=== PATIENT | female | born 1970 | race Caucasian/White ===

== ENCOUNTER 2024-03-30 01:57 | Inpatient (IN) | payer OTHER, SELFPAY ==
[2024-03-29 23:09] VITALS: BP 169/99
[2024-03-29 23:12] VITALS: BP 169/99
[2024-03-29 23:15] VITALS: BP 162/99
--- NOTE | 2024-03-29 23:19 | ED.GENMED ---
History of Present Illness
General
Chief Complaint: Chest Pain
Source: patient
Time Seen by Provider: 03/29/24 23:05
History of Present Illness
History of Present Illness:
53-year-old female presents to the emergency room complaining of chest pain. Patient has been having intermittent chest pain since about 4 PM. Patient does have a history of coronary artery disease with bypass and stents even after bypass. Her
last cardiac catheterization was in [place]. Patient took nitro earlier this evening about 7 PM. Her discomfort seem to go away but then it returned. Patient describes it as a indigestion-like discomfort in her chest which radiates to her neck.
She also has some discomfort in her arms. This is similar to what she is experienced with past heart attacks. She is not nauseous. She denies shortness of breath. Patient is diagnosed with hypertension, hyperlipidemia and diabetes. Rather than
take traditional medications the patient has been relying on herbs and other nontraditional remedies to treat her medical conditions. She does not take aspirin every day.
Past History
Past History
ED Past Medical History: CAD, HTN and Hypercholesterolemia
ED Past Surgical History: Cardiac
Social History
Tobacco: Non-smoker
Alcohol: None
Drug: None
Personal: Other
Living: with family
Employment: Other
Family History
Family History: Adopted
Phy Exam
Physical Exam
Physical Exam:
General: Awake, Alert, Oriented X3. No acute distress.
Vitals: unremarkable
Head: Atraumatic
Eyes: Pupils equal, EOMI
Throat: Airway intact, no exudates
Neck: Trachea midline
Lungs: Clear and equal b/l
Heart: Regular rate, no murmurs
Abd: Soft, Nontender, No pulsatile mass
Neuro: Nonfocal
Skin: Warm, dry, no rash
Extremities: pulses equal b/l, no edema
Scores
Heart Score for Chest Pain Patients
STEMI patient?: Yes
Course
Orders/Labs/Results
Orders:
Orders
03/29/24 22:57
ECG [Electrocardiogram (*1)] Urgent
Reason for Study: Chest Pain
03/29/24 22:58
EKG- Treatment ONCE
03/29/24 23:11
Complete Blood Count/With Diff Urgent
Comprehensive Metabolic Panel Urgent
PT/INR [Prothrombin Time] Urgent
PTT Urgent
Troponin I Urgent
03/29/24 23:33
Heparin 1000 Units/500 ml [Heparin] 1,000 units in 500 ml .ROUTE .STK-MED
Lidocaine HCl/Pf [Xylocaine-Mpf 1% Vial] 100 mg .ROUTE .STK-MED ONE
Verapamil Injectable [Isoptin/Verapamil Injection] 5 mg .ROUTE .STK-MED ONE
03/29/24 23:34
Heparin Sodium,Porcine/Ns/Pf [Heparin 2000 Units/1000 ml] 2,000 unit in 1,000 ml .ROUTE .STK-MED
Nitroglycerin [Tridil] 1,500 mcg .ROUTE .STK-MED ONE
03/29/24 23:40
Fentanyl Citrate/Pf [Sublimaze] 100 mcg .ROUTE .STK-MED ONE
Heparin 10,000 units .ROUTE .STK-MED ONE
Midazolam HCl [Versed] 2 mg .ROUTE .STK-MED ONE
03/29/24 23:53
Nitroglycerin [Tridil] 1,500 mcg .ROUTE .STK-MED ONE
03/29/24 23:56
Aspirin Chewable [Low Strength Aspirin] 324 mg .ROUTE .STK-MED ONE
Heparin 5,000 units .ROUTE .STK-MED ONE
Ticagrelor [Brilinta] 180 mg .ROUTE .STK-MED ONE
Abnormal Lab Results
03/29/24
23:11
Carbon Dioxide 21 L mmol/L
(22-30)
BUN 24 H mg/dl
(7-17)
Glucose 387 H mg/dl
(70-99)
Calcium 10.4 H mg/dl
(8.4-10.2)
03/29/24 23:11
03/29/24 23:11
Vital Signs
Initial and Last Documented VS:
Initial Vital Signs
Pulse Resp Pulse Ox
86 18 98
03/29/24 23:08 03/29/24 23:08 03/29/24 23:08
Last Documented Vital Signs
Temp Pulse Resp BP Pulse Ox
98.4 F 91 20 157/89 97
03/29/24 23:12 03/29/24 23:30 03/29/24 23:30 03/29/24 23:30 03/29/24 23:30
MDM/Problems Addressed
Differential Diagnosis Includes:
Acute CA, acute coronary syndrome, GERD
MDM/Problems Addressed:
Patient presents with chest pain. His EKG that was obtained in triage shows ST elevation in 2 3 and aVF with reciprocal changes. Patient does have a significant cardiac history. Patient also has risk factors of diabetes, hypertension,
hypercholesterolemia and family history. Unfortunately the patient is not taking any of her prescribed medication. She has been reliant on herbal remedies and other nontraditional therapies. STEMI alert called after review of the patient's
current EKG and previous EKGs. Dr. Kim came and evaluated the patient and will take the patient to the Police Shift Commander.
Chronic conditions affecting care: DM, HTN, CAD and Other (High cholesterol)
*Pulse Oximetry
Patient hypoxic: no
*EKG
Interpreted by ED Provider?: Yes
Interpretation: abnormal
Heart Rate: 85
Rate: normal
Rhythm: sinus
Ischemia: other (ST elevation in leads II, 3, aVF. There is ST depression in lead I and lead aVL)
*Hand Ironer Interpretation
Rate: normal
Interpretation: normal
Rhythm: other
*Critical Care Note
Total Time (30-74mins, 75-104mins- exclusive of procedures): 33 min
comment:
Critical care statement: A total of 33 minutes of critical care time was provided for this patient. This includes management of unstable vital signs, evaluation of the patient at bedside, reviewing the patient's pertinent medical records, discussion
with consultants, review of old EKGs and review of pertinent medical records. This time with separate from time utilized to perform the aforementioned documented procedures
Patient Management
Social determinants of health affecting care: Other (Noncompliant with prescribed medications)
Discussion with other providers: Ham Stripper (Interventional cardiology, Dr. Kim)
ED Attending Note
-
Portions of this chart may have been created with voice recognition software.� Occasional wrong word or��sound alike� substitutions may have occurred due to the inherent limitations of voice recognition software.
Discharge Plan
Departure
Patient Disposition: Admit
Admit to: process laboratory specialist
Presentation/result/management discussed w/ accepting MD/DO: Dr Kim
Condition: Serious
Discharge Problem:
ST elevation (STEMI) myocardial infarction
Prescriptions:
No Action
metoprolol succinate 50 MG tablet extended release 24 hr
50 mg PO DAILY
ezetimibe 10 MG tablet
10 mg PO DAILY
atorvastatin 80 MG tablet
80 mg PO DAILY
aspirin 81 MG tablet,delayed release (DR/EC)
81 mg PO DAILY
magnesium oxide 500 MG tablet
500 mg PO DAILY
B-complex with vitamin C 1 CAPLET tablet
1 cap PO DAILY
insulin glargine [Lantus Solostar U-100 Insulin] 300 UNITS/3 ML insulin pen
22 units SC DAILY
clopidogrel 75 MG tablet
75 mg PO DAILY Qty: 30 11RF
pantoprazole 40 MG tablet,delayed release (DR/EC)
40 mg PO DAILY Qty: 30 11RF
insulin aspart U-100 [Novolog FlexPen U-100 Insulin] 300 UNITS/3 ML insulin pen
5 units SC AC Qty: 1 1RF
amlodipine 5 MG tablet
5 mg PO DAILY Qty: 30 2RF
Referrals:
Nils Scott, [Family Provider] -
Interventions
Interventions:
*Risk Screen - Suicide Last Done: 03/29/24 23:18
*General Assessment Last Done: 03/29/24 23:18
*Neglect/Abuse Screening Last Done: 03/29/24 23:18
*ED COVID-19 Vaccine History Last Done: 03/29/24 23:18
*Nursing Disposition Last Done: 03/29/24 23:40
ED- Cardiac Assessment Last Done: 03/29/24 23:22
Discharge Date and Time
Discharge Date/Time: 03/29/24 23:40
Print Language: BENINESE
[2024-03-29 23:21] LABS: % Basophils 0.4 % (0-2); % Eosinophils 0.9 % (0-6); % Immature Granulocytes 0.1 % (0-0.5); % Lymphocytes 41.3 % (20.5-51.1); % Monocytes 4.8 % (1.7-9.3); % Neutrophils 52.5 % (42.2-75.2); Absolute Eosinophils 0.1 10^3/uL (0-0.7); Absolute Lymphocytes 2.9 10^3/uL (1.2-3.4); Absolute Monocytes 0.3 10^3/uL (0.1-0.6); Absolute Neutrophils 3.6 10^3/uL (1.4-6.5); Hematocrit 38.5 % (37.0-47.0); Hemoglobin 13.7 g/dL (12.0-16.0); Mean Corp Hgb Conc. 35.6 g/dL (33.0-37.0); Mean Corpuscular Hgb 28.9 pg (27.0-31.0); Mean Corpuscular Volume 81.2 fL (81.0-99.0); Mean Platelet Volume 10.3 fL (7.4-10.4); Nucleated Red Blood Cells % 0 %; Platelet Count 329 10^3/uL (130-400); Red Blood Cell Count 4.74 10^6/uL (4.20-5.40); Red Cell Dist. Width 12.3 % (11.5-14.5); White Blood Cell Count 6.9 10^3/uL (4.8-10.8)
[2024-03-29 23:24] VITALS: BP 152/94
[2024-03-29 23:26] VITALS: BP 152/94
[2024-03-29 23:30] VITALS: BP 157/89
[2024-03-29 23:33] LABS: ALT (SGPT) 30 U/L (0-35); AST (SGOT) 29 U/L (14-36); Alkaline Phosphatase 87 U/L (38-126); Blood Urea Nitrogen 24 mg/dl (7-17); Calcium 10.4 mg/dl (8.4-10.2); Carbon Dioxide 21 mmol/L (22-30); Chloride 100 mmol/L (98-107); Estimated Creatinine Clearance 112 ml/min; Glucose 387 mg/dl (70-99); INR 0.93; PT 12.5 Sec (11.4-14.6); Potassium 4.9 mmol/L (3.5-5.1); Sodium 138 mmol/L (135-145); Total Bilirubin 0.9 mg/dl (0.2-1.3); Total Protein 8.1 g/dl (6.3-8.2); eGFR > 60.00
--- NOTE | 2024-03-29 23:41 | HPS.HSE ---
Family Physician
-
Family Physician: Nils Scott
Chief Complaint
-
Chest pain.
History of Present Illness
53 y/o female with HTN, HLD, IDDM and CAD s/p prior CABG x5 (RAMÍREZ to LAD, LRA to RI to OM, SVG to Diagonal, SVG to RPDA) presenting with chest pain. EKG showed ST elevation in the inferior leads. optical laboratory technician was activated. At the time of
presentation, the patient's chest pain had improved to 2-3/10. She had a prior cardiac catheterization on 02/12/[address] Peter, at which time the SVG to RPDA was noted to be occluded and the RCA was a COMM[employer]IST. Her SD was medically managed.
Since then, she reports that she has suffered two more events last summer (summer 2022) while she was in [place]. An additional stent was placed, but she is not sure in what artery.
She reports that she is not taking any medications beyond her insulin, which she takes 'sometimes'. She is using cayanne pepper as a 'blood thinner'.
Medical History
Past Medical History
Past Medical History: Reports CAD, HTN, Hypercholesterolemia, IDDM and SD
Past Surgical History: Reports Cardiac (CABG x 4 (RAMÍREZ to LAD, LRA to RI, SVG to Diagonal, occluded SVG to RPDA - 02/12/2021).)
Social History
Tobacco: Non-smoker
Personal: Single
Living: Alone
Family History
Family History: Not pertinent
Allergies / Home Medications
Allergies reflects when Allergies were last updated in [facility].
Home Medications with original date entered in [facility]
Allergy/Medication List:
Home Medications:
Insulin (unclear dose).
Allergies:
PCN
Review of Systems
-
Constitutional: Reports No Symptoms
EENT: Reports No Symptoms
Respiratory: Reports No Symptoms
Cardiac: Reports See HPI and Chest Pain
Abdomen/GI: Reports No Symptoms
: Reports No Symptoms
Musculoskeletal: Reports No Symptoms
Physical Exam
Vital Signs
Vital Signs
Temp Pulse Resp BP Pulse Ox
36.9 C 91 20 157/89 97
03/29/24 23:12 03/29/24 23:30 03/29/24 23:30 03/29/24 23:30 03/29/24 23:30
Physical Exam
General: Well Developed, Well Nourished, No Apparent Distress, Comfortable, Conversant and Good Appetite
HEENT: NormoCephalic, Anicteric, Moist mucous membranes, Atraumatic, Good Dentition, PERRLA, [place] Conjunctivae, Nose Appears Normal, Ears Appear Normal and Neck Nontender
Respiratory: Clear and Non Labored Respirations
Cardiac: S1/S2 and Regular Rhythm
Breast: Deferred by me
GI: Soft, Non Tender, Non Distended and Normal Bowel Sounds
Rectal: Deferred by Provider
Genito-urinary: Deferred by me
Musculoskeletal: No Clubbing, No Cyanosis and No Edema
Skin: Warm and Dry
Neuro: AO x 3
Hematologic/Lymphatic: No Lymphadenopathy
Psych: Calm and Intact Judgment/Insight
Laboratory Results
-
03/29/24 23:11
03/29/24 23:11
Laboratory Results
Total Bilirubin 0.9 mg/dl (0.2-1.3) 03/29/24 23:11
AST 29 U/L (14-36) 03/29/24 23:11
ALT 30 U/L (0-35) 03/29/24 23:11
Alkaline Phosphatase 87 U/L (38-126) 03/29/24 23:11
Data Reviewed
-
Medical Tests (Nuc Med, Echo, EKG etc): Image Personally Visualized and interpreted and Report Reviewed by me
Lab Data: Labs Reviewed by me
Old Records: Reviewed
Impression/Plan
-
IMPRESSION: 53 y/o female with IDDM, HTN, HLD, CAD s/p prior CABG and PCI and medical non-compliance admitted with chest pain and inferior ST segment elevations consistent with STEMI.
PLAN:
#CAD/STEMI
-Urgent cardiac catheterization with ad hoc PCI.
-Risks/benefits explained to the patient.
-Consent is signed and on the chart.
-Further instructions to follow.
[2024-03-29 23:44] LABS: Troponin I 0.031 ng/ml
[2024-03-30] VITALS (20 sets, daily range): BP systolic 88–147; BP diastolic 58–126; BMI 27.8
[2024-03-30 00:33] LABS: ACT-LR - POC 240 Seconds (116-155)
[2024-03-30 01:06] LABS: ACT-LR - POC 237 Seconds (116-155)
[2024-03-30 01:12] LABS: ACT-LR - POC 258 Seconds (116-155)
[2024-03-30 01:27] LABS: ACT-LR - POC 311 Seconds (116-155)
[2024-03-30 01:27] LABS: ACT-LR - POC 306 Seconds (116-155)
[2024-03-30 01:40] LABS: Glucose - Point of Care 268 mg/dl (70-99)
--- NOTE | 2024-03-30 01:41 | ITS.CL.ANGIO ---
Hoop Driving Machine Operator Helper - Angioplasty
Angioplasty
Procedure Report:
CARDIAC CATHETERIZATION REPORT
Date of Procedure: 03/29/2024
Referring: Hakeem Camacho D.O.
INDICATION: Inferior ST elevation myocardial infarction.
PROCEDURE:
1. Left heart catheterization.
2. Coronary angiography.
3. Bypass graft angiography.
4. Successful PCI of the left circumflex.
5. Successful PCI of the SVG to diagonal.
6. Successful IVUS guided angioplasty of the left circumflex stents due to hyper acute stent thrombosis.
ACCESS:
6 Vincentian right common femoral artery using a modified Seldinger technique with a micropuncture kit under ultrasound guidance.
CATHETERS:
1. 6 Vincentian JL 4.
2. 6 Vincentian JR4.
3. 6 Vincentian JOSE.
4. 6 Vincentian EBU 4.0 guiding catheter.
5. 6 Vincentian JR4 guiding catheter.
HEMODYNAMIC DATA
Weight (kg): 78.0
AO (s/d/x, mmHg): 141/77/101
LV (s/x mmHg): 142/10
LEFT VENTRICULOGRAPHY: Not performed.
CORONARY ANGIOGRAPHY
Dominance: Right.
Left Main: Large size, trifurcating vessel. There is no significant coronary artery disease.
LAD: Small size vessel giving rise to 1 notable diagonal. The vessel is diffusely diseased with a discrete, 70% lesion in its midportion. There is an 80% lesion in the proximal diagonal. The distal LAD is supplied by a patent RAMÍREZ graft. The
diagonal is supplied by a patent vein graft.
Ramus: Normal size vessel that supplies the majority of the anterolateral wall and wraps around the inferior apex. The vessel is chronically totally occluded at its origin. The vessel supplied by a patent left radial graft.
Circumflex: Small to medium size, nondominant vessel giving rise to 2 small obtuse marginals before terminating as a left posterolateral branch. There is a 40% lesion in the ostium of the vessel. There is a culprit, 90% lesion in the mid
circumflex, and between OM's 1 and 2.
RCA: Small size, dominant vessel that is diffusely diseased. A patent stent is visible in the mid vessel spanning the origin of the RV marginal. There is catheter dampening with engagement of the JR4 but no appreciable stenosis.
BYPASS GRAFT ANGIOGRAPHY
RAMÍREZ to LAD: Small size graft with Endo side anastomosis to the distal LAD. There is no evidence of stenosis or graft degeneration.
LRA to ramus: Normal size graft with end-to-side anastomosis to the ramus intermedius. There is a 50% stenosis in the proximal vessel immediately after the bypass robin with significant catheter dampening on engagement that does not respond to
intracoronary nitroglycerin. This appears stable from prior angiography in 2020.
SVG to RPDA: Arising from the same robin as the left radial artery to ramus graft. The graft is chronically totally occluded at its origin, demonstrated in 2020.
SVG to diagonal: Normal size graft with end-to-side anastomosis to the diagonal artery. There is a stable, 50% lesion in the proximal margin of the vein graft. There is a new, hazy, 80% lesion in the mid graft with to and fro appearance
concerning for thrombus.
INTERVENTION(S)
1. Successful PCI of the culprit, 90% mid circumflex lesion (Medtronic Turin Grady 2.0 x 12 SHAWNA) with reduction in stenosis to 0%, maintaining MATT-3 flow.
2. Successful aspiration thrombectomy of the SVG to diagonal graft (AICHA catheter) with white thrombus in the basket and an improvement in the hazy appearance of the graft.
3. Successful PCI of the hazy, 80% mid SVG to diagonal lesion (Medtronic Turin Grady 3.5 x 34 SHAWNA, postdilated with a 3.5 NC balloon) with reduction in stenosis to 0% and resolution of the hazy, to and fro appearance.
4. Successful aspiration thrombectomy of hyperacute mid circumflex stent thrombosis (AICHA catheter).
5. Successful IVUS guided angioplasty of the mid circumflex stent (Medtronic Euphora 2.0 x 12 NC balloon to 14 deana) with improved stent expansion and latter day of MATT-3 flow.
Narrative:
The decision was made to proceed with percutaneous coronary intervention, though it was not entirely clear which lesion was a true culprit. The diagnostic catheter was removed over a wire and a 6Fr EBU 4.0 guiding catheter was advanced to the aortic
root and seated in the left main coronary artery. Additional heparin was given and a Power Turn Flex wire was advanced into the distal circumflex/LPL. The 90% mid circumflex lesion was predilated with a 2.0 x 12 semi-compliant balloon to 8 deana. The
semi-compliant balloon was removed and a Medtronic Turin Grady 2.0 x 12 drug-eluting stent was advanced. The stent was deployed at 12 atmospheres. The stent balloon was removed. Post angiography appeared to show an excellent angiographic result.
Given the relatively small nature of the vessel, the decision was made to not post dilate at this time.
We then turned our attention to the SVG to diagonal lesion. The decision was made to proceed with percutaneous coronary intervention. The EBU 4.0 guiding catheter was removed over a wire and a 6Fr JR4 guiding catheter was advanced to the aortic
root and seated in the ostium of the SVG to diagonal. A Power Turn Flex wire was advanced into the distal diagonal. The hazy, 80% mid graft lesion was predilated with a 2.0 x 12 semi-compliant balloon to 12 deana. The semi-compliant balloon was
removed.
Given the to and fro appearance, the decision was made to proceed with aspiration thrombectomy. An AICHA catheter was advanced over the power turn flex wire and into the vein graft. Aspiration thrombectomy was performed under negative pressure and
the catheter was withdrawn and a negative pressure state. The contents of the syringe were flushed through a permeable basket. Several pieces of white thrombus were visible in the basket.
During the course of the SVG intervention, the patient's ACT had been checked numerous times. The initial ACT was surprisingly low, around 230 seconds. An additional bolus of heparin was given and a subsequent ACT was out of range high. A third
ACT was drawn approximately 20 minutes later showing that the ACT had fallen to 240 seconds. The ACT was checked on a separate machine, resulting in an ACT of 257 seconds. An additional 5000 units of heparin was given (for total of 17,000 units).
A 3.0 x 20 semicompliant balloon was advanced over the power turn flex wire and into the vein graft. The lesion was predilated again to 12 deana. The semicompliant balloon was removed and a Medtronic Giovany Grady 3.5 x 38 drug-eluting stent was
advanced. Meticulous care was taken while positioning the stent, ensuring that the entire lesion, including the hazy, to and fro area was covered. The stent was deployed at 12 atmospheres. The stent balloon was removed. A 3.5 x 15 noncompliant
balloon was advanced but would not pass the ostium of the stent. The noncompliant balloon was withdrawn and a 3.5 x 12 noncompliant balloon was advanced. Unfortunately, there was significant difficulty advancing this balloon as well. A GuideLiner
was brought in for support. With the GuideLiner, we were able to advance the noncompliant balloon into the stented segment. The stent was postdilated to 16 atmospheres.
Over the course of the SVG intervention, the patient began to complain of chest pain, similar to that which had brought her in. EKG showed rising inferior ST segment elevation and spite of excellent runoff from the vein graft into the diagonal and
no obvious complication from the procedure. Angiography was performed in orthogonal views, confirming good stent expansion and an excellent angiographic result. The coronary wire was withdrawn and the guide was disengaged from the artery. The
catheter was removed over a standard J-wire.
The patient was started on a nitroglycerin drip. The decision was made to relook at the [place] circulation to ensure that there has been no subsequent complication. The JL 4 diagnostic catheter was readvanced and seated in the left main coronary
artery. Diagnostic angiography showed hyperacute stent thrombosis of the recently placed mid circumflex stent. The patient was given eptifibatide is a double bolus and drip and the diagnostic catheter was exchanged for the EBU 4.0 guiding
catheter. The power turn flex wire was readvanced into the distal circumflex. Angiography after wire placement showed latter day of MATT-3 flow, but we opted to perform aspiration thrombectomy given the hyperacute nature of the thrombosis. After
aspiration thrombectomy was completed, a 2.0 x 12 noncompliant balloon was advanced into the stent and the stent was postdilated to 14 atmospheres.
The decision was made to perform intracoronary imaging. An IVUS catheter was advanced through the guiding catheter and into the ostium of the artery. Ring down was performed once the imaging crystal was no longer inside of the guiding catheter. The
IVUS catheter was advanced into the distal circumflex, beyond the stented segment. Intravascular ultrasound was performed in a retrograde fashion using a slow pullback. Intracoronary imaging demonstrated a diffusely diseased distal vessel. The
stented segment showed excellent stent apposition throughout with underexpansion of the distal edge of the stent (1.6 x 1.8 mm).
The IVUS catheter was withdrawn and the 2.0 x 12 noncompliant balloon was readvanced. The balloon was positioned so that the shoulder of the balloon was outside of the stented segment to ensure complete expansion of the distal stent. The balloon
was inflated to 14 deana. The noncompliant balloon was withdrawn.
Angiography was performed in orthogonal views, confirming good stent expansion and an excellent angiographic result. The coronary wire was withdrawn and the guide was disengaged from the artery. The catheter was removed over a standard J-wire.
Final ACT was 342 seconds. Over the course of the neck several minutes, the patient's chest pain completely abated. She was transferred to the IVU in fair condition.
Closure Device: 6 Vincentian Angio-Seal.
Radiation (mGy): 1442.62
DAP (cm2.Gy): 87.1386
Fluoroscopy time (minutes): 21.4
Sedation time (minutes): 92
CONCLUSIONS
1. Right dominant circulation with a patent stent in the mid RCA but an otherwise diffusely diseased vessel, a diffusely diseased LAD with a discrete, 70% lesion in the midportion, and 80% lesion in the proximal diagonal, a chronic total occlusion
of the ramus intermedius, a 40% lesion in the ostium of the left circumflex and a culprit, 90% lesion in the mid circumflex between OM1 and OM 2.
2. Status post coronary artery bypass grafting with a patent RAMÍREZ to LAD, and occluded SVG to RPDA, a patent LRA to ramus with a 50% lesion in the proximal margin, stable from prior angiography, and a patent SVG to diagonal with a stable 50% ostial
lesion and a new, hazy, 80% mid graft lesion with a to and fro appearance concerning for thrombus.
3. Successful PCI of the 90% mid circumflex lesion (Medtronic Turin Grady 2.0 x 12 SHAWNA) with reduction in stenosis to 0%, subsequently complicated by hyperacute stent thrombosis requiring aspiration thrombectomy and IVUS guided postdilation
angioplasty (Medtronic Euphora 2.0 x 12 NC balloon to 14 deana) with improved stent expansion/apposition and latter day of MATT-3 flow.
4. Successful aspiration thrombectomy and PCI of the hazy, 80% mid SVG to diagonal lesion (Medtronic Giovany Grady 3.5 x 38 SHAWNA, postdilated with a 3.5 NC balloon) with reduction in stenosis to 0%, maintaining MATT-3 flow.
5. Normal filling pressures (LVEDP = 10 mmHg at 78.0 kg).
6. I am suspicious for some inherited thrombophilia as the patient required a significant amount of heparin to achieve and then maintain an adequate ACT (17,000 units).
RECOMMENDATIONS:
1. Expectant management after cardiac catheterization via right common femoral approach.
2. Limited weight bearing for one week.
3. Dual antiplatelet therapy with aspirin and ticagrelor for at least 1 year, followed by aspirin indefinitely.
4. Reinitiation of aggressive secondary prevention with high-dose, high potency statin. Goal LDL <55.
5. Guideline directed medical therapy as hemodynamics will tolerate.
6. Maintain eptifibatide drip at 2 mcg/kg for 18 hours.
7. Echocardiogram ordered and pending.
8. Referral to cardiac rehab.
Copy to: Nils Scott D.O.
Magnus Callaway, DO, FACC, FACP
[2024-03-30] MEDS: INTEGRILIN 100 IV ×3 (01:50→16:14)
[2024-03-30] MEDS: NITROGLYCERIN PREMIX 250 IV (01:50)
[2024-03-30] MEDS: NSS 1000 IV (02:24)
[2024-03-30 05:13] LABS: Hemoglobin 12.3 g/dL (12.0-16.0); Mean Corp Hgb Conc. 36.2 g/dL (33.0-37.0); Mean Corpuscular Hgb 29.6 pg (27.0-31.0); Mean Corpuscular Volume 81.7 fL (81.0-99.0); Mean Platelet Volume 10.5 fL (7.4-10.4); Platelet Count 302 10^3/uL (130-400); Red Blood Cell Count 4.16 10^6/uL (4.20-5.40); Red Cell Dist. Width 12.3 % (11.5-14.5); White Blood Cell Count 9.3 10^3/uL (4.8-10.8)
[2024-03-30 05:54] LABS: Blood Urea Nitrogen 19 mg/dl (7-17); Calcium 10.6 mg/dl (8.4-10.2); Carbon Dioxide 21 mmol/L (22-30); Chloride 104 mmol/L (98-107); Estimated Creatinine Clearance 112 ml/min; Glucose 264 mg/dl (70-99); Potassium 4.5 mmol/L (3.5-5.1); Sodium 138 mmol/L (135-145); eGFR > 60.00
[2024-03-30 07:20] LABS: Glucose - Point of Care 273 mg/dl (70-99)
--- NOTE | 2024-03-30 07:49 | PTCARENOTE ---
Rec'd pt. out of [address] at 0150 AAOx3, VSS, NSR on the monitor. Pt. denied any CP/discomfort, able to discontinue running nitro gtt at 0400 as per protocol. Right groin dressing with old drainage that grew slightly, dressing changed x 2 & manual
pressure held x 20 minutes, hemostasis pad placed - oozing completely stopped. No hematoma assessed, pedal pulse palpable. CV-PA Tsilina aware. Integrilin gtt infusing as per order. Pt. oriented to room and admission completed. Attempted to
reconcile med list but pt. states she no longer takes any prescription meds at home except for her Novalog when she 'feels' that her blood sugar is high.
[2024-03-30 08:21] LABS: Glycohemoglobin (HgbA1c) 10.7 % (4.0-5.6)
[2024-03-30] MEDS: ZESTRIL 2.5 MG PO (09:06)
[2024-03-30] MEDS: BRILINTA 90 MG PO ×2 (09:06→20:04)
[2024-03-30] MEDS: LOW STRENGTH ASPIRIN 81 MG PO (09:07)
[2024-03-30] MEDS: TOPROL XL 12.5 MG PO (09:07)
[2024-03-30] MEDS: NOVOLOG FLEXPEN-LOW RESISTANCE 3 UNITS SC (09:25)
[2024-03-30] MEDS: NOVOLOG FLEXPEN 5 UNITS SC (09:25)
--- NOTE | 2024-03-30 09:41 | W.PN.CARDCBS ---
Addendum entered and electronically signed by Kamar Redmond MD 03/30/24 14:50:
I saw and examined the patient.
The Warehouse Supervisor 3Rd Shift's note was reviewed and I agree with the note.
Comment: Briefly, 53-year-old woman past medical history of multivessel CAD with prior CABG in 2019 who presented with chest and jaw pain found to have inferior STEMI who is now status post PCI of the mid circumflex and SVG to diagonal. Procedure
was complicated by hyperacute stent thrombosis requiring aspiration thrombectomy. Patient is being maintained on Integrilin drip post cath.
Tells me that her chest and jaw discomfort have resolved
No evidence of mechanical complication of DC or decompensated heart failure on exam
Monitor on telemetry
Continue aspirin/Brilinta, Toprol with a high intensity statin
Check transthoracic echocardiogram to assess left ventricular systolic function
Reports mild dyspnea, would consider Lasix in the a.m. if symptoms persist
Discussed cardiac rehab as well as importance of medication compliance
Original Note:
Today's Communication / Plan
-
urged medication compliance
trend trops to peak
continue integrilin, asa, brilinta
echo today
toprol, lisinopril, crestor ordered
diabetic AUTOMOBILE ASSEMBLER consult
Impression / Plan
-
Primary Deck Mate: Dr. Serge Hayden of [facility]
Assessment:
-Presentation with CP
-STEMI s/p emergent cath 03/30/24 with culprit 90% lesion in mid circumflex status post stenting complicated by hyperacute stent thrombosis requiring aspiration thrombectomy and IVUS guided angioplasty and aspiration thrombectomy and PCI of mid SVG
to diagonal lesion
-residual CAD as noted in cath report below
-CAD
Inferior DC 06/2019, vessels felt to be too small for revascularization, initially treated medically
status post CABG x 4 RAMÍREZ to LAD, left radial to ramus, SVG to diagonal, SVG to PDA at [facility], [place], Dr. Levin 08/2019
NSTEMI 01/2021 with occluded SVG to PDA, diseased SVG to diagonal, patent radial graft to ramus and distal circumflex branch, managed medically due to small vessel with high likelihood of reocclusion
NSTEMI 12/2022 resulting in SHAWNA to RCA which subsequently occluded 3 days later off DAPT due to medical noncompliance
RCA PCI 12/2022
Status post cardiac catheterization 09/07/2023 with triple-vessel coronary artery disease with widely patent bypass grafts and known occluded RCA collateralized by LAD system, felt to be culprit for patient's symptoms
-HTN
-HLD
-DM2, hgbA1c 10.7%
-GERD
-Medication noncompliance
ECHO 02/13/2021: EF 60%, trace to mild MR, mild TR, PAP 25 to 30 mmHg
ECHO 03/30/24: pending
CATH CONCLUSIONS 03/30/24:
1. Right dominant circulation with a patent stent in the mid RCA but an otherwise diffusely diseased vessel, a diffusely diseased LAD with a discrete, 70% lesion in the midportion, and 80% lesion in the proximal diagonal, a chronic total occlusion
of the ramus intermedius, a 40% lesion in the ostium of the left circumflex and a culprit, 90% lesion in the mid circumflex between OM1 and OM 2.
2. Status post coronary artery bypass grafting with a patent RAMÍREZ to LAD, and occluded SVG to RPDA, a patent LRA to ramus with a 50% lesion in the proximal margin, stable from prior angiography, and a patent SVG to diagonal with a stable 50% ostial
lesion and a new, hazy, 80% mid graft lesion with a to and fro appearance concerning for thrombus.
3. Successful PCI of the 90% mid circumflex lesion (Medtronic [place] 2.0 x 12 SHAWNA) with reduction in stenosis to 0%, subsequently complicated by hyperacute stent thrombosis requiring aspiration thrombectomy and IVUS guided postdilation
angioplasty (Medtronic Euphora 2.0 x 12 NC balloon to 14 deana) with improved stent expansion/apposition and latter day of MATT-3 flow.
4. Successful aspiration thrombectomy and PCI of the hazy, 80% mid SVG to diagonal lesion (Medtronic Gi[place]any [place] 3.5 x 38 SHAWNA, postdilated with a 3.5 NC balloon) with reduction in stenosis to 0%, maintaining MATT-3 flow.
5. Normal filling pressures (LVEDP = 10 mmHg at 78.0 kg).
6. I am suspicious for some inherited thrombophilia as the patient required a significant amount of heparin to achieve and then maintain an adequate ACT (17,000 units).
Plan:
-Patient reports over the last week she has noted some chest discomfort which she thought was indigestion. She reports initial episode had lasted a few minutes and went away on its own. She then had recurrence several days later and took Tums
without improvement. She then took a sublingual nitro x 1 which did improve her symptoms. She states she did come to [facility] emergency room and walked around in the parking lot for a little without recurrence of chest pain and
therefore returned home. She states then several days later, yesterday around 3 PM she noted recurrence of symptoms which was constant. She states she came in when she 'could not take it anymore'. She reports for the last year or so she has not
been taking aspirin or Plavix and has been using cayenne pepper as a substitute. She also reports using her insulin 'sometimes'.
-She was noted to be a STEMI on arrival and underwent emergent catheterization resulting in stent to mid circumflex which was complicated by hyperacute stent thrombosis requiring aspiration thrombectomy and IVUS guided angioplasty and also underwent
aspiration thrombectomy and PCI of mid SVG to diagonal lesion. She has residual CAD as noted above
-Currently on aspirin, Brilinta and plan to continue Integrilin for 18 hours. We discussed absolute necessity of medication compliance moving forward
-She did have some oozing from her groin site overnight, currently stable. Hemoglobin stable at 12.3. Groin site remains soft on exam
-trop up to 2.5, trend to peak
-Echo pending
-Check lipid panel. Restart high intensity statin therapy, which she had stopped on her own as an outpatient
-Hemoglobin A1c 10.7%. Consult diabetic education/management. Also discussed importance of compliance with insulin
-She reports some shortness of breath this morning. Check proBNP. Chest x-ray on arrival without acute abnormalities noted. She may have component of acute heart failure, however also could be due to Brilinta. Will follow
-Low-dose Toprol and lisinopril started
-patient is adopted so is unable to provide family history. would consider hematologic work up to rule out underlying clotting disorder
-Outpatient follow-up with Dr. Hayden
-Cardiac rehab
-Discussed with nursing
Progress Note - Deck Mate
Subjective
Date of Service: March 30, 2024
No present chest pain. Does report some feelings of breathlessness
Objective
Labs:
03/30/24 04:34
03/30/24 04:49
Labs
Hgb 12.3 g/dL (12.0-16.0) 03/30/24 04:34
Hct 34.0 % (37.0-47.0) L 03/30/24 04:34
Plt Count 302 10^3/uL (130-400) 03/30/24 04:34
PT 12.5 Sec (11.4-14.6) 03/29/24 23:11
INR 0.93 03/29/24 23:11
APTT 27.0 Sec (23.4-35.0) 03/29/24 23:11
Sodium 138 mmol/L (135-145) 03/30/24 04:49
Potassium 4.5 mmol/L (3.5-5.1) 03/30/24 04:49
BUN 19 mg/dl (7-17) H 03/30/24 04:49
Creatinine 0.5 mg/dL (0.6-1.0) L 03/30/24 04:49
Glucose 264 mg/dl (70-99) H 03/30/24 04:49
Troponins
03/29/24 03/30/24
23:11 04:49
Troponin I 0.031 2.510 H* D
Vital Signs and I&O:
Vital Signs
Temp Pulse Resp BP Pulse Ox
98 F 60 20 101/70 98
03/30/24 07:13 03/30/24 09:06 03/30/24 07:13 03/30/24 09:06 03/30/24 07:13
Vital Signs
Temp Pulse Resp BP Pulse Ox
98 F 60 20 101/70 98
03/30/24 07:13 03/30/24 09:06 03/30/24 07:13 03/30/24 09:06 03/30/24 07:13
Intake & Output
03/28/24 03/29/24 03/30/24 03/31/24
07:59 07:59 07:59 07:59
Intake Total 62 / 62
Balance 62 / 62
Physical Exam
Physical Exam
GEN: No distress, awake, alert, oriented x3
HEENT: supple, anicteric, mmm, eomi
LUNGS: CTA B/L, no wheezes/rales
CV: Reg, S1/S2, no murmur
ABD: soft, BS+, NT/ND
EXT: No cyanosis, clubbing, edema
NEURO: Gross non-focal
SKIN: Warm, pink, dry. No rash. R groin site with dressing c/d/i, soft, mild surrounding ecchymoses
--- NOTE | 2024-03-30 09:48 | CM ---
Pricing on Brilinta 90mg BID through the patient' prescription plan is $146. 85, patient has commercial insurance and qualifies for the $5 co pay card. Brilinta is in stock at [facility]
[2024-03-30 10:48] LABS: NT-proBNP 162 pg/ml
[2024-03-30 10:56] LABS: HDL Cholesterol 78 mg/dl; LDL Cholesterol, Calculated 142 mg/dl; Total Cholesterol 294 mg/dl (50-199); Triglyceride 371 mg/dl (10-149); Very Low Density Lipoprotein 74 mg/dl (0-30)
--- NOTE | 2024-03-30 11:12 | CM ---
Chart reviewed. Patient is independent of ADLS, lives in a 1st floor trailer [place] friends property, 2-3 DUNCAN, 0 DME. Plan is for the patient to return home. CM to follow
--- NOTE | 2024-03-30 11:18 | PN.DE.MGMTRT ---
Insulin Management
- -
03/30/2024 Diabetes Management Consult
Patient admitted 03/29 with chest pain, stemi. PMH CAD with CABG, HTN, HCL, diabetes, [place]. Prior to admission was taking insulin occasionally if she felt she needed it but no lantus. A1C on admission 10.7%, cr .5, eGFR >60.
Patient is awake alert and oriented able to discuss diabetes management. Admits she has not taken care of herself. Has seen an endo in the past, not sure who and only saw them once. Primarily follows with primary. She did have a DexCom G7 but
script ran out. She states she was told to take 30 units of lantus @ hs with novolog 8 units with breakfast, 10 with lunch and dinner.
Will increase AC novolog to 8 units with low corrective insulin and start hs lantus 30 units tonight. Will check 3 am glucose.
She expressed interest in an insulin pump. Instructed patient that diabetes is too uncontrolled, she would have to start taking her insulin and improve control then suggest she speak with her doctor about obtaining pump. My number provided for
further help with pump education.
Will follow
Diabetes History
- -
Type of Diabetes: 2 requiring insulin
Pre-Admission Diabetes Regimen
03/29/24 03/30/24
23:11 04:49
Creatinine 0.6 0.5 L
Lab Results
Hemoglobin A1c 10.7 % (4.0-5.6) H 03/30/24 04:34
Insulin Pump Settings
IP Diabetes Regimen
03/29/24 03/30/24 03/30/24
23:11 01:30 04:49
Glucose 387 H 264 H
POC Glucose 268 H
03/30/24
07:19
Glucose
POC Glucose 273 H
Patient Education
[2024-03-30 13:00] LABS: ACT-LR - POC > 397 Seconds (116-155)
[2024-03-30] MEDS: NOVOLOG FLEXPEN 8 UNITS SC ×2 (13:24→18:26)
[2024-03-30] MEDS: NOVOLOG FLEXPEN-LOW RESISTANCE 2 UNITS SC ×2 (13:24→18:25)
[2024-03-30 13:27] LABS: Glucose - Point of Care 220 mg/dl (70-99)
[2024-03-30 17:42] LABS: Glucose - Point of Care 216 mg/dl (70-99)
[2024-03-30] MEDS: CRESTOR 40 MG PO (18:29)
[2024-03-30 22:08] LABS: Glucose - Point of Care 224 mg/dl (70-99)
[2024-03-30] MEDS: LANTUS 0.3 UNITS SC (22:23)
--- NOTE | 2024-03-31 00:27 | PTCARENOTE ---
Right groin dressing C/D/I and ecchymosis near site. Soft upon palpation. Tele remains SR at rest. POC ongoing. Call stinson within reach.
[2024-03-31 03:35] VITALS: BP 107/69
[2024-03-31 03:41] LABS: Glucose - Point of Care 212 mg/dl (70-99)
[2024-03-31 04:32] LABS: Hemoglobin 13.1 g/dL (12.0-16.0); Mean Corp Hgb Conc. 35.4 g/dL (33.0-37.0); Mean Corpuscular Hgb 29.8 pg (27.0-31.0); Mean Corpuscular Volume 84.3 fL (81.0-99.0); Mean Platelet Volume 10.7 fL (7.4-10.4); Platelet Count 271 10^3/uL (130-400); Red Blood Cell Count 4.39 10^6/uL (4.20-5.40); Red Cell Dist. Width 12.4 % (11.5-14.5); White Blood Cell Count 6.8 10^3/uL (4.8-10.8)
[2024-03-31 04:54] LABS: Blood Urea Nitrogen 18 mg/dl (7-17); Calcium 9.8 mg/dl (8.4-10.2); Carbon Dioxide 22 mmol/L (22-30); Chloride 104 mmol/L (98-107); Estimated Creatinine Clearance 96 ml/min; Glucose 217 mg/dl (70-99); Potassium 4.5 mmol/L (3.5-5.1); Sodium 140 mmol/L (135-145); eGFR > 60.00
[2024-03-31 08:11] VITALS: BP 113/76
[2024-03-31 08:15] LABS: Glucose - Point of Care 219 mg/dl (70-99)
--- NOTE | 2024-03-31 08:34 | PN.DE.MGMTRT ---
Insulin Management
- -
03/31/2024 Diabetes Management F/U:
Patient admitted 03/29 with chest pain, STEMI. PMH: CAD with CABG, HTN, HCL, diabetes, [place]. Prior to admission was taking insulin occasionally if she felt she needed it but no Lantus. Admits she has not taken care of herself. Has seen an endo in the
past, not sure who and only saw them once. Primarily follows with primary. She did have a DexCom G7 but script ran out. She states she was told to take 30 units of Lantus @ HS with NovoLog 8 units with breakfast, 10 with lunch and dinner. A1C on
admission 10.7%, Cr 0.5, eGFR >60.
Pt awake A/O x3, sitting up in chair, offers no complaints, able to discuss diabetes management.
Noted for persistent premeal Hyperglycemia >200, requiring additional corrective insulin with meals. HS glucose 224, 3AM glucose 217
Will increase AC NovoLog to 10 units and HS Lantus to 35 units. Cont low corrective insulin with meals. Will check 3 am glucose.
She expressed interest in an insulin pump. Discussed current A1C and reflection of poorly controlled diabetes at home. Emphasized to pt that she would have to start taking her insulin consistently to improve her blood sugars. Suggested she speak
with her doctor about obtaining pump. My number provided for further help with pump education.
Will follow. Discussed wit pt's Nurse at bedside
Diabetes History
- -
Type of Diabetes: 2 requiring insulin
Pre-Admission Diabetes Regimen
03/31/24
03:46
Creatinine 0.7
Lab Results
Hemoglobin A1c 10.7 % (4.0-5.6) H 03/30/24 04:34
Insulin Pump Settings
IP Diabetes Regimen
03/30/24 03/30/24 03/30/24
13:23 17:40 22:07
Glucose
POC Glucose 220 H 216 H 224 H
03/31/24 03/31/24 03/31/24
03:40 03:46 08:13
Glucose 217 H
POC Glucose 212 H 219 H
Meal type: Dinner
Amount consumed: 100%
Patient Education
[2024-03-31] MEDS: BRILINTA 90 MG PO ×2 (08:49→20:04)
[2024-03-31] MEDS: ZESTRIL 2.5 MG PO (08:49)
[2024-03-31] MEDS: LOW STRENGTH ASPIRIN 81 MG PO (08:50)
[2024-03-31] MEDS: TOPROL XL 12.5 MG PO (08:50)
[2024-03-31] MEDS: LASIX 40 MG IV (08:51)
[2024-03-31] MEDS: NOVOLOG FLEXPEN-LOW RESISTANCE 2 UNITS SC ×2 (09:41→14:30)
[2024-03-31] MEDS: NOVOLOG FLEXPEN 8 UNITS SC (09:42)
--- NOTE | 2024-03-31 09:53 | PTCARENOTE ---
Pt states she takes no medicines regularly at home but possesses aspirin 81mg , novolog flexpens which she uses when she eats a carb heavy meal (without checking her blood sugar), accucheck testing materials and a dexcom.
[2024-03-31 11:18] VITALS: BP 97/64
--- NOTE | 2024-03-31 11:26 | CM ---
Chart reviewed. Patient is independent of ADLS, lives alone in a trailer in a friends yard, 2-3 [place], 0 DME. Plan is for the patient to return home. CM to follow
--- NOTE | 2024-03-31 12:05 | W.PN.CARDCBS ---
Addendum entered and electronically signed by Kamar Redmond MD 03/31/24 13:32:
I saw and examined the patient.
The Manipulator Operator's note was reviewed and I agree with the note.
Comment: Briefly, 53-year-old woman past medical history of multivessel CAD with prior CABG in 2019 who presented with chest and jaw pain found to have inferior STEMI who is now status post PCI of the mid circumflex and SVG to diagonal. Procedure
was complicated by hyperacute stent thrombosis requiring aspiration thrombectomy.
Resting comfortably this morning, no cardiac complaints
No evidence of mechanical complication of CO or decompensated heart failure on exam
Monitor on telemetry, rare ectopy seen
Continue aspirin/Brilinta, Toprol and high intensity statin
Left ventricular systolic function preserved by echo here
Intermittent dyspnea which is mild
Not clearly improved with IV lasix
Will reassess in AM
Recommended cardiac rehab
Rest per Gabriela Ugarte
Original Note:
Today's Communication / Plan
-
Continue aspirin, Brilinta, rosuvastatin, low-dose Toprol and lisinopril
Continue to monitor on telemetry with anticipation of discharge within next 24 hours
Impression / Plan
-
Primary Box Car Loader: Dr. Serge Hayden of [facility]
Assessment:
-Presentation 03/29/2024 with CP
-STEMI s/p emergent cath 03/30/24 with culprit 90% lesion in mid circumflex status post stenting complicated by hyperacute stent thrombosis requiring aspiration thrombectomy and IVUS guided angioplasty and aspiration thrombectomy and PCI of mid SVG
to diagonal lesion
-residual CAD as noted in cath report below
-CAD
Inferior CO 06/2019, vessels felt to be too small for revascularization, initially treated medically
status post CABG x 4 RAMÍREZ to LAD, left radial to ramus, SVG to diagonal, SVG to PDA at [facility] [place], Dr. Levin 08/2019
NSTEMI 01/2021 with occluded SVG to PDA, diseased SVG to diagonal, patent radial graft to ramus and distal circumflex branch, managed medically due to small vessel with high likelihood of reocclusion
NSTEMI 12/2022 resulting in SHAWNA to RCA which subsequently occluded 3 days later off DAPT due to medical noncompliance
RCA PCI 12/2022
Status post cardiac catheterization 09/07/2023 with triple-vessel coronary artery disease with widely patent bypass grafts and known occluded RCA collateralized by LAD system, felt to be culprit for patient's symptoms
-HTN
-HLD
-DM2, hgbA1c 10.7%
-GERD
-Medication noncompliance
ECHO 02/13/2021: EF 60%, trace to mild MR, mild TR, PAP 25 to 30 mmHg
ECHO 03/30/24:EF 55 to 60%. Mild MR. Mild to moderate TR, PAP 20 to 25 mmHg
CATH CONCLUSIONS 03/30/24:
1. Right dominant circulation with a patent stent in the mid RCA but an otherwise diffusely diseased vessel, a diffusely diseased LAD with a discrete, 70% lesion in the midportion, and 80% lesion in the proximal diagonal, a chronic total occlusion
of the ramus intermedius, a 40% lesion in the ostium of the left circumflex and a culprit, 90% lesion in the mid circumflex between OM1 and OM 2.
2. Status post coronary artery bypass grafting with a patent RAMÍREZ to LAD, and occluded SVG to RPDA, a patent LRA to ramus with a 50% lesion in the proximal margin, stable from prior angiography, and a patent SVG to diagonal with a stable 50% ostial
lesion and a new, hazy, 80% mid graft lesion with a to and fro appearance concerning for thrombus.
3. Successful PCI of the 90% mid circumflex lesion (Medtronic Giovany [place] 2.0 x 12 SHAWNA) with reduction in stenosis to 0%, subsequently complicated by hyperacute stent thrombosis requiring aspiration thrombectomy and IVUS guided postdilation
angioplasty (Medtronic [place] 2.0 x 12 NC balloon to 14 deana) with improved stent expansion/apposition and episcopal of MATT-3 flow.
4. Successful aspiration thrombectomy and PCI of the hazy, 80% mid SVG to diagonal lesion (Medtronic Giovany [place] 3.5 x 38 SHAWNA, postdilated with a 3.5 NC balloon) with reduction in stenosis to 0%, maintaining MATT-3 flow.
5. Normal filling pressures (LVEDP = 10 mmHg at 78.0 kg).
6. I am suspicious for some inherited thrombophilia as the patient required a significant amount of heparin to achieve and then maintain an adequate ACT (17,000 units).
Plan:
-Presented 03/29/24 with chest pain and found to have STEMI on arrival and underwent emergent catheterization 03/30/2024 resulting in stent to mid circumflex which was complicated by hyperacute stent thrombosis requiring aspiration thrombectomy and
IVUS guided angioplasty and also underwent aspiration thrombectomy and PCI of mid SVG to diagonal lesion. She has residual CAD as noted above
-Continue aspirin, Brilinta. Brilinta $5 with co-pay card. We discussed absolute necessity of medication compliance moving forward
-Hemoglobin stable at 13.1. Groin site remains soft on exam
-Troponin peaked at 3.740
-Echo as above shows preserved ejection fraction
-Lipids 03/30/2024, was not taking statin. TC 294, HDL 78, LDL 142, triglycerides 371. Restarted high intensity rosuvastatin, which she had stopped on her own as an outpatient
-Hemoglobin A1c 10.7%. Was noncompliant with taking insulin. Appreciate diabetic education/management. Also discussed importance of compliance with insulin
-Did note some shortness of breath with conversation. ProBNP 162. Chest x-ray on arrival without acute abnormalities noted. No evidence of volume overload or heart failure on examination. Could be due to Brilinta. Discussed this can happen
intermittently for 1 to 2 weeks after initiation then usually resolves. Will follow
-Low-dose Toprol and lisinopril started. Unable to uptitrate secondary to hypotension
-patient is adopted so is unable to provide family history. would consider hematologic work up to rule out underlying clotting disorder
-Outpatient follow-up with Dr. Serge Hayden
-Cardiac rehab
-Discussed with nursing
[facility] 03/29/2024:
53 y/o female with HTN, HLD, IDDM and CAD s/p prior CABG x5 (RAMÍREZ to LAD, LRA to RI to OM, SVG to Diagonal, SVG to RPDA) presenting with chest pain. EKG showed ST elevation in the inferior leads. engineering laboratory technician was activated. At the time of
presentation, the patient's chest pain had improved to 2-3/10. She had a prior cardiac catheterization on 02/12/[address] Peter, at which time the SVG to RPDA was noted to be occluded and the RCA was a LIGHTHOUSE KEEPER. Her CO was medically managed.
Since then, she reports that she has suffered two more events last summer (summer 2022) while she was in [place]. An additional stent was placed, but she is not sure in what artery.
She reports that she is not taking any medications beyond her insulin, which she takes 'sometimes'. She is using cayanne pepper as a 'blood thinner'.
Patient reports over the last week she has noted some chest discomfort which she thought was indigestion. She reports initial episode had lasted a few minutes and went away on its own. She then had recurrence several days later and took Tums
without improvement. She then took a sublingual nitro x 1 which did improve her symptoms. She states she did come to [facility] emergency room and walked around in the parking lot for a little without recurrence of chest pain and
therefore returned home. She states then several days later, yesterday around 3 PM she noted recurrence of symptoms which was constant. She states she came in when she 'could not take it anymore'. She reports for the last year or so she has not
been taking aspirin or Plavix and has been using cayenne pepper as a substitute. She also reports using her insulin 'sometimes'.
Progress Note - Box Car Loader
Subjective
Date of Service: March 31, 2024
Patient seen and examined. Patient resting comfortably in bed. Patient notes some mild shortness of breath with conversation which is different than what she felt prior. Denies orthopnea, PND or edema. Denies chest pain, dizziness or
lightheadedness
Objective
Labs:
03/31/24 03:46
03/31/24 03:46
Labs
Hgb 13.1 g/dL (12.0-16.0) 03/31/24 03:46
Hct 37.0 % (37.0-47.0) 03/31/24 03:46
Plt Count 271 10^3/uL (130-400) 03/31/24 03:46
PT 12.5 Sec (11.4-14.6) 03/29/24 23:11
INR 0.93 03/29/24 23:11
APTT 27.0 Sec (23.4-35.0) 03/29/24 23:11
Sodium 140 mmol/L (135-145) 03/31/24 03:46
Potassium 4.5 mmol/L (3.5-5.1) 03/31/24 03:46
BUN 18 mg/dl (7-17) H 03/31/24 03:46
Creatinine 0.7 mg/dL (0.6-1.0) 03/31/24 03:46
Glucose 217 mg/dl (70-99) H 03/31/24 03:46
Troponins
03/29/24 03/30/24 03/30/24
23:11 04:49 11:09
Troponin I 0.031 2.510 H* D 3.740 H* D
03/30/24 03/30/24
16:20 19:43
Troponin I 2.750 H* D 2.250 H*
Vital Signs and I&O:
Vital Signs
Temp Pulse Resp BP Pulse Ox
98.4 F 87 18 113/76 98
03/31/24 11:20 03/31/24 08:11 03/31/24 11:20 03/31/24 08:11 03/31/24 11:20
Vital Signs
Temp Pulse Resp BP Pulse Ox
98.4 F 87 18 113/76 98
03/31/24 11:20 03/31/24 08:11 03/31/24 11:20 03/31/24 08:11 03/31/24 11:20
Intake & Output
03/29/24 03/30/24 03/31/24 04/01/24
06:59 06:59 06:59 06:59
Intake Total 360 / 360
Balance 360 / 360
Physical Exam
Physical Exam
GEN: No distress, awake, Ox3, lying in bed
HEENT: supple, anicteric, mmm
LUNGS: CTA, no wheezes/rales
CV: Reg, S1/S2, no murmur, rub or gallop
ABD: soft, BS+, NT/ND
EXT: No edema, clubbing or cyanosis; right groin soft, mild tenderness with moderate amount of ecchymosis without hematoma
NEURO: Gross non-focal
SKIN: No rash, warm, dry, pink
[2024-03-31 13:38] LABS: Glucose - Point of Care 216 mg/dl (70-99)
[2024-03-31] MEDS: NOVOLOG FLEXPEN SC (14:29)
[2024-03-31 15:50] VITALS: BP 124/85
[2024-03-31 16:29] LABS: Glucose - Point of Care 181 mg/dl (70-99)
[2024-03-31] MEDS: NOVOLOG FLEXPEN-LOW RESISTANCE 1 UNITS SC (17:14)
[2024-03-31] MEDS: NOVOLOG FLEXPEN 10 UNITS SC (17:14)
[2024-03-31] MEDS: CRESTOR 40 MG PO (17:16)
--- NOTE | 2024-03-31 18:07 | PTCARENOTE ---
Pt denies any chest /jaw discomfort. Pt up in chair and walking in halls with great encouragement. Pt given CAD and medication information, will reinforce often. Pt also coming to terms with better attention to her diabetes. Telemetry shows sinus
rhythm.
[2024-03-31 18:30] VITALS: BP 114/71
[2024-03-31 20:55] LABS: Glucose - Point of Care 300 mg/dl (70-99)
[2024-03-31] MEDS: LANTUS 0.35 UNITS SC (21:58)
[2024-03-31 22:02] VITALS: BP 106/66
--- NOTE | 2024-03-31 22:49 | PTCARENOTE ---
Patient ambulating in hallways w/out difficulty. Pt c/o mild SOB with ambulating, and has an occasionally NEW CAR DRIVER dry cough. Pulse ox 97-100% RA at rest. Lungs clear throughout. Tele remains SR. Right groin site LORAINE and ecchymotic. Soft upon palpation.
Bilateral pedal pulses palpable. Patient aware of POC. Call stinson within reach.
[2024-04-01 03:03] VITALS: BP 101/71
[2024-04-01 03:14] LABS: Glucose - Point of Care 190 mg/dl (70-99)
[2024-04-01 03:44] LABS: Blood Urea Nitrogen 20 mg/dl (7-17); Calcium 10.1 mg/dl (8.4-10.2); Carbon Dioxide 24 mmol/L (22-30); Chloride 102 mmol/L (98-107); Estimated Creatinine Clearance 95 ml/min; Glucose 170 mg/dl (70-99); Sodium 141 mmol/L (135-145); eGFR > 60.00
[2024-04-01 03:52] LABS: Hematocrit 37.9 % (37.0-47.0); Hemoglobin 13.5 g/dL (12.0-16.0); Mean Corp Hgb Conc. 35.6 g/dL (33.0-37.0); Mean Corpuscular Hgb 28.8 pg (27.0-31.0); Mean Corpuscular Volume 80.8 fL (81.0-99.0); Mean Platelet Volume 10.3 fL (7.4-10.4); Platelet Count 341 10^3/uL (130-400); Red Blood Cell Count 4.69 10^6/uL (4.20-5.40); Red Cell Dist. Width 12.5 % (11.5-14.5); White Blood Cell Count 8.2 10^3/uL (4.8-10.8)
--- NOTE | 2024-04-01 07:40 | W.PN.CARDCBS ---
Addendum entered and electronically signed by Gabriela Ugarte PA-C 04/03/24 13:08:
dictated d/c summary [id number]
Addendum entered and electronically signed by Kamar Redmond MD 04/01/24 19:11:
I saw and examined the patient.
The Senior Coldfusion Developer's note was reviewed and I agree with the note.
Patient seen on morning rounds
Comment: Briefly, 53-year-old woman past medical history multivessel CAD with prior CABG in 2019 who presented with inferior STEMI and underwent PCI to left circumflex as well as SVG
Asymptomatic this morning, not experiencing any chest discomfort or shortness of breath
No evidence of mechanical complication of KY or decompensated heart failure on physical exam
Maintaining sinus rhythm on telemetry
Explained the importance of continuing dual antiplatelet therapy
Continue high intensity statin, beta-david, DIANNE
Recommended cardiac rehab
Outpatient follow-up has been arranged with primary guest services attendant
Stable for discharge
Original Note:
Today's Communication / Plan
-
Continue aspirin, Brilinta, Toprol, Lisinopril, Crestor
Insulin dosing per diabetic management
Outpatient cardiology follow-up and cardiac rehab has been arranged
Stable for discharge
Impression / Plan
-
Primary Supervisor Pit And Auxiliaries: Dr. Serge Hayden of [facility]
Assessment:
-Presentation 03/29/2024 with CP
-STEMI s/p emergent cath 03/30/24 with culprit 90% lesion in mid circumflex status post stenting complicated by hyperacute stent thrombosis requiring aspiration thrombectomy and IVUS guided angioplasty and aspiration thrombectomy and PCI of mid SVG
to diagonal lesion
-residual CAD as noted in cath report below
-CAD
Inferior KY 06/2019, vessels felt to be too small for revascularization, initially treated medically
status post CABG x 4 RAMÍREZ to LAD, left radial to ramus, SVG to diagonal, SVG to PDA at [facility], Dr. Levin 08/2019
NSTEMI 01/2021 with occluded SVG to PDA, diseased SVG to diagonal, patent radial graft to ramus and distal circumflex branch, managed medically due to small vessel with high likelihood of reocclusion
NSTEMI 12/2022 resulting in SHAWNA to RCA which subsequently occluded 3 days later off DAPT due to medical noncompliance
RCA PCI 12/2022
Status post cardiac catheterization 09/07/2023 with triple-vessel coronary artery disease with widely patent bypass grafts and known occluded RCA collateralized by LAD system, felt to be culprit for patient's symptoms
-HTN
-HLD
-DM2, hgbA1c 10.7%
-GERD
-Medication noncompliance
ECHO 02/13/2021: EF 60%, trace to mild MR, mild TR, PAP 25 to 30 mmHg
ECHO 03/30/24:EF 55 to 60%. Mild MR. Mild to moderate TR, PAP 20 to 25 mmHg
CATH CONCLUSIONS 03/30/24:
1. Right dominant circulation with a patent stent in the mid RCA but an otherwise diffusely diseased vessel, a diffusely diseased LAD with a discrete, 70% lesion in the midportion, and 80% lesion in the proximal diagonal, a chronic total occlusion
of the ramus intermedius, a 40% lesion in the ostium of the left circumflex and a culprit, 90% lesion in the mid circumflex between OM1 and OM 2.
2. Status post coronary artery bypass grafting with a patent RAMÍREZ to LAD, and occluded SVG to RPDA, a patent LRA to ramus with a 50% lesion in the proximal margin, stable from prior angiography, and a patent SVG to diagonal with a stable 50% ostial
lesion and a new, hazy, 80% mid graft lesion with a to and fro appearance concerning for thrombus.
3. Successful PCI of the 90% mid circumflex lesion (Medtronic Giovany [place] 2.0 x 12 SHAWNA) with reduction in stenosis to 0%, subsequently complicated by hyperacute stent thrombosis requiring aspiration thrombectomy and IVUS guided postdilation
angioplasty (Medtronic Euphora 2.0 x 12 NC balloon to 14 deana) with improved stent expansion/apposition and worship of MATT-3 flow.
4. Successful aspiration thrombectomy and PCI of the hazy, 80% mid SVG to diagonal lesion (Medtronic Giovany [place] 3.5 x 38 SHAWNA, postdilated with a 3.5 NC balloon) with reduction in stenosis to 0%, maintaining MATT-3 flow.
5. Normal filling pressures (LVEDP = 10 mmHg at 78.0 kg).
6. I am suspicious for some inherited thrombophilia as the patient required a significant amount of heparin to achieve and then maintain an adequate ACT (17,000 units).
Plan:
-Presented 03/29/24 with chest pain and found to have STEMI on arrival and underwent emergent catheterization 03/30/2024 resulting in stent to mid circumflex which was complicated by hyperacute stent thrombosis requiring aspiration thrombectomy and
IVUS guided angioplasty and also underwent aspiration thrombectomy and PCI of mid SVG to diagonal lesion. She has residual CAD as noted above
-Patient feeling well and able to ambulate around unit without concerning cardiac symptoms.
-Continue aspirin, Brilinta. Brilinta $5 with co-pay card. We discussed absolute necessity of medication compliance moving forward
-Hemoglobin stable at 13.5. Groin site remains soft on exam
-Troponin peaked at 3.740
-Echo as above shows preserved ejection fraction
-Lipids 03/30/2024, was not taking statin. TC 294, HDL 78, LDL 142, triglycerides 371. Restarted high intensity rosuvastatin, which she had stopped on her own as an outpatient
-Hemoglobin A1c 10.7%. Was noncompliant with taking insulin. Appreciate diabetic education/management. Also discussed importance of compliance with insulin
-Did note some shortness of breath with conversation. ProBNP 162. Chest x-ray on arrival without acute abnormalities noted. No evidence of volume overload or heart failure on examination. Could be due to Brilinta. Discussed this can happen
intermittently for 1 to 2 weeks after initiation then usually resolves. Patient agreeable to continue with Brilinta. If patient continues to have shortness of breath after several weeks could consider switching to Plavix. Patient would need 600
mg load of Plavix at time of transition then to 75 mg daily after
-Low-dose Toprol and lisinopril started. Unable to uptitrate secondary to hypotension
-patient is adopted so is unable to provide family history. would consider hematologic work up to rule out underlying clotting disorder
-Outpatient follow-up with Dr. Serge Hayden scheduled. Recommend patient get established with endocrinology.
-Cardiac rehab has been arranged
-Once again had very detailed conversation with patient regarding importance of compliance with her medication particularly Brilinta and aspirin. Also discussed the importance of continuing statin and getting diabetes under control. Patient seems
motivated.
-Discussed with nursing, patient
HPI 03/29/2024:
53 y/o female with HTN, HLD, IDDM and CAD s/p prior CABG x5 (RAMÍREZ to LAD, LRA to RI to OM, SVG to Diagonal, SVG to RPDA) presenting with chest pain. EKG showed ST elevation in the inferior leads. labor training manager was activated. At the time of
presentation, the patient's chest pain had improved to 2-3/10. She had a prior cardiac catheterization on 02/12/[address] 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 Her KY was medically managed.
Since then, she reports that she has suffered two more events last summer (summer 2022) while she was in [place]. An additional stent was placed, but she is not sure in what artery.
She reports that she is not taking any medications beyond her insulin, which she takes 'sometimes'. She is using cayanne pepper as a 'blood thinner'.
Patient reports over the last week she has noted some chest discomfort which she thought was indigestion. She reports initial episode had lasted a few minutes and went away on its own. She then had recurrence several days later and took Tums
without improvement. She then took a sublingual nitro x 1 which did improve her symptoms. She states she did come to [facility] emergency room and walked around in the parking lot for a little without recurrence of chest pain and
therefore returned home. She states then several days later, yesterday around 3 PM she noted recurrence of symptoms which was constant. She states she came in when she 'could not take it anymore'. She reports for the last year or so she has not
been taking aspirin or Plavix and has been using cayenne pepper as a substitute. She also reports using her insulin 'sometimes'.
Progress Note - Supervisor Pit And Auxiliaries
Subjective
Date of Service: April 01, 2024
Patient seen and examined. Patient able to walk around the unit multiple times yesterday without recurrence of chest pain or shortness of breath. She denies dizziness or lightheadedness.
Objective
Labs:
04/01/24 03:11
04/01/24 03:11
Labs
Hgb 13.5 g/dL (12.0-16.0) 04/01/24 03:11
Hct 37.9 % (37.0-47.0) 04/01/24 03:11
Plt Count 341 10^3/uL (130-400) D 04/01/24 03:11
PT 12.5 Sec (11.4-14.6) 03/29/24 23:11
INR 0.93 03/29/24 23:11
APTT 27.0 Sec (23.4-35.0) 03/29/24 23:11
Sodium 141 mmol/L (135-145) 04/01/24 03:11
Potassium 4.0 mmol/L (3.5-5.1) 04/01/24 03:11
BUN 20 mg/dl (7-17) H 04/01/24 03:11
Creatinine 0.7 mg/dL (0.6-1.0) 04/01/24 03:11
Glucose 170 mg/dl (70-99) H 04/01/24 03:11
Troponins
03/29/24 03/30/24 03/30/24
23:11 04:49 11:09
Troponin I 0.031 2.510 H* D 3.740 H* D
03/30/24 03/30/24
16:20 19:43
Troponin I 2.750 H* D 2.250 H*
Vital Signs and I&O:
Vital Signs
Temp Pulse Resp BP Pulse Ox
98.1 F 70 18 101/71 96
04/01/24 03:03 04/01/24 04:00 04/01/24 03:03 04/01/24 03:03 04/01/24 03:03
Vital Signs
Temp Pulse Resp BP Pulse Ox
98.1 F 70 18 101/71 96
04/01/24 03:03 04/01/24 04:00 04/01/24 03:03 04/01/24 03:03 04/01/24 03:03
Intake & Output
03/30/24 03/31/24 04/01/24 04/02/24
06:59 06:59 06:59 06:59
Intake Total 62 / 62 360 / 360 400 / 400
Balance 62 / 62 360 / 360 400 / 400
Physical Exam
Physical Exam
GEN: No distress, awake, Ox3, lying in bed
HEENT: supple, anicteric, mmm
LUNGS: CTA, no wheezes/rales
CV: Reg, S1/S2, no murmur, rub or gallop
ABD: soft, BS+, NT/ND
EXT: No edema, clubbing or cyanosis; right groin soft, mild tenderness with moderate amount of ecchymosis without hematoma
NEURO: Gross non-focal
SKIN: No rash, warm, dry, pink
[2024-04-01 08:00] VITALS: BP 103/77
[2024-04-01 08:03] LABS: Glucose - Point of Care 187 mg/dl (70-99)
[2024-04-01] MEDS: LOW STRENGTH ASPIRIN 81 MG PO (08:12)
[2024-04-01] MEDS: TOPROL XL 12.5 MG PO (08:12)
[2024-04-01] MEDS: BRILINTA 90 MG PO (08:12)
--- NOTE | 2024-04-01 08:25 | W.DS.TRANS ---
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
-
Discharge Instructions:
Discharge Diagnosis/Procedures STEMI, Angioplasty with stent to Left circumflex
artery and vein graft to diagonal artery
Diet Low Cholesterol,Diabetic, Carb Controlled
Driving Restrictions No driving for 24 hours
Other Services Cardiac Rehab
Instructions:
Stand-Alone Forms: DC Instructions- Cath/EP Lab
Changes to Home Medications: Yes
Discharge Medications:
DC Medications w/original date entered in [facility]
aspirin 81 mg chewable tablet 81 mg PO DAILY #90 tabs 04/01/24
insulin aspart U-100 100 unit/mL (3 mL) subcutaneous pen 10 unit (0.1 mL) SC AC #15 mL 04/01/24
insulin glargine 100 unit/mL subcutaneous solution (Lantus U-100 Insulin) 35 unit (0.35 mL) SC QPM Diabetes #10 mL 04/01/24
lisinopril 2.5 mg tablet 2.5 mg PO DAILY #90 tabs 04/01/24
metoprolol succinate 25 mg tablet,extended release 24 hr 12.5 mg (1/2 x 25 mg) PO DAILY #45 tabs 04/01/24
rosuvastatin 40 mg tablet 40 mg PO QPM #90 tabs 04/01/24
ticagrelor 90 mg tablet (Brilinta) 90 mg PO BID #180 tabs 04/01/24
Home Medication Changes
New to ASA, Glargine insulin, Lisinopril, Metoprolol, Rosuvastatin and Ticagrelor
Pending Results: No
Total time spent discharging patient (in min): 37
[2024-04-01] MEDS: NOVOLOG FLEXPEN-LOW RESISTANCE 1 UNITS SC (09:55)
[2024-04-01] MEDS: ZESTRIL PO (09:55)
[2024-04-01] MEDS: NOVOLOG FLEXPEN SC (09:55)
--- NOTE | 2024-04-01 11:08 | PTCARENOTE ---
Pt denies any discomfort, seen by Gabriela Ugarte NP. Telemetry and IV devices removed. Discharge instructions reviewed with pt regarding medications and their possible side effects, wound care, activity guidelines, reporting cares and concerns and
follow upa ppts. Good understanding verbalized. Reinforced need to be compliant with medications and follow up, pt agrees. Pt escorted out via wheelchair and discharged to home.
== END 2024-04-01 10:55 | disposition home or self-care (01) | DRG 321 ==
LOC: IVU 01:57
PROVIDERS: ADMITTING PHYSICIAN Internal Medicine Cardiovascular Disease; ATTENDING PHYSICIAN Internal Medicine Cardiovascular Disease; EMERGENCY PHYSICIAN Emergency Medicine; FAMILY PHYSICIAN Internal Medicine
PROC: 4A023N7 Measurement of Cardiac Sampling and Pressure, Left Heart, Percutaneous Approach (ICD-10-PCS; 2024-03-30)
PROC: B2181ZZ Fluoroscopy of Left Internal Mammary Bypass Graft using Low Osmolar Contrast (ICD-10-PCS; 2024-03-30)
PROC: B2131ZZ Fluoroscopy of Multiple Coronary Artery Bypass Grafts using Low Osmolar Contrast (ICD-10-PCS; 2024-03-30)
PROC: 027135Z Dilation of Coronary Artery, Two Arteries with Two Drug-eluting Intraluminal Devices, Percutaneous Approach (ICD-10-PCS; 2024-03-30)
PROC: B2111ZZ Fluoroscopy of Multiple Coronary Arteries using Low Osmolar Contrast (ICD-10-PCS; 2024-03-30)
PROC: 02C13ZZ Extirpation of Matter from Coronary Artery, Two Arteries, Percutaneous Approach (ICD-10-PCS; 2024-03-30)
PROC: B240ZZ3 Ultrasonography of Single Coronary Artery, Intravascular (ICD-10-PCS; 2024-03-30)
DX: I21.19 ST elevation (STEMI) myocardial infarction involving other coronary artery of inferior wall (principal); I25.810 Atherosclerosis of coronary artery bypass graft(s) without angina pectoris; T82.867A Thrombosis due to cardiac prosthetic devices, implants and grafts, initial encounter; D68.59 Other primary thrombophilia; I10 Essential (primary) hypertension; E78.00 Pure hypercholesterolemia, unspecified; E11.9 Type 2 diabetes mellitus without complications; I25.10 Atherosclerotic heart disease of native coronary artery without angina pectoris; K21.9 Gastro-esophageal reflux disease without esophagitis; I95.9 Hypotension, unspecified; Y84.0 Cardiac catheterization as the cause of abnormal reaction of the patient, or of later complication, without mention of misadventure at the time of the procedure; Z95.1 Presence of aortocoronary bypass graft; I25.2 Old myocardial infarction; Z95.5 Presence of coronary angioplasty implant and graft; Z79.4 Long term (current) use of insulin; Z91.148 Patient's other noncompliance with medication regimen for other reason
CPT/HCPCS: 80048; 80053; 80061; 82962; 83036; 83880; 84484; 85025; 85027; 85347; 85610; 85730; 92978; 93005; 93306; 93459; 99291; C1725; C1753; C1760; C1769; C1874; C1887; C1894; C9604; C9606; J1327; Q9967

== ENCOUNTER 2024-04-19 17:06 | Outpatient (RCR) | payer OTHER, SELFPAY ==
[2024-04-19 14:21] LABS: Glucose - Point of Care 191 mg/dl (70-99)
== END 2024-04-19 23:59 | disposition home or self-care (01) ==
LOC: CRHB 17:06
PROVIDERS: ATTENDING PHYSICIAN Student in an Organized Health Care Education/Training Program
DX: I25.10 Atherosclerotic heart disease of native coronary artery without angina pectoris (principal); Z95.5 Presence of coronary angioplasty implant and graft; I25.2 Old myocardial infarction
CPT/HCPCS: 82962; 93798

== ENCOUNTER 2025-03-04 14:26 | Inpatient (IN) | payer OTHER, SELFPAY ==
[2025-03-04] VITALS (12 sets, daily range): BP systolic 116–153; BP diastolic 66–103; BMI 27.4; BMI 26.9
--- NOTE | 2025-03-04 11:13 | ED.GENMED ---
History of Present Illness
General
Chief Complaint: Chest Problem
Source: patient
Exam Limitations: none
Time Seen by Provider: 03/04/25 10:57
Nursing documentation reviewed up to this point in time: agreed with
History of Present Illness
History of Present Illness:
Patient is a 54-year-old female with past medical history of CAD multivessel status post CABG times 31 August 2019 NSTEMI with a drug-eluting stent to RCA December 2022 and PCI drug-eluting stent 03/2024 insulin-dependent diabetes presents to the ER
for evaluation. Patient reports with past week she has had intermittent episodes of pain in her chest which radiates to her jaw and right arm. She reports last about 30 minutes at a time does resolve with rest. This typically occurs with
activity. Today she report it lasted longer than normal which what prompted her to come to the ER. 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 As documented she has a significant cardiac history and she is a
diabetic however has not been compliant with her medicine. She does not take her diabetic meds and does not take her statin. She only takes losartan and Ticagrelor . She is currently asymptomatic.
She has not seen a silk weaver since she was seen here in March 2024. She reports she switched insurances. As documented from previous visits she has a history of noncompliance with medication and treatment.
Past History
Past History
ED Past Medical History: CAD, HTN and Hypercholesterolemia
ED Past Surgical History: Cardiac
Social History
Tobacco: Non-smoker
Alcohol: None
Drug: None
Personal: Other
Living: with family
Employment: Other
Family History
Family History: Adopted
Phy Exam
General Physical Exam
General Presentation: no apparent distress
General age: appears stated age
General Skin: warm and dry
General Habitus: normal
General Mental: alert
General Hydration: appears well hydrated
Cardiovascular Exam
Cardiovascular Exam: regular rate/rhythm, no murmur and normal peripheral pulses
Pulmonary Exam
Pulmonary Exam: lungs clear and no respiratory distress
Neurological Exam
Neurological Exam: alert and oriented x3
Musculoskeletal Exam
Musculoskeletal Exam: full ROM
Skin Exam
Skin Exam: normal color and warm/dry
Psychiatric Exam
Psychiatric Exam: normal mood/affect
Course
Orders/Labs/Results
Orders:
Orders
03/04/25 10:39
Electrocardiogram (*1) Urgent
Reason for Study: Chest Pain
EKG- Treatment ONCE
03/04/25 11:07
B-Hydroxybutyrate Urgent
Comment: ADD ON
CMP [Comprehensive Metabolic Panel] Urgent
Complete Blood Count/With Diff Urgent
PT/INR [Prothrombin Time] Urgent
PTT Urgent
Troponin I Urgent
03/04/25 11:42
Add On- LAB Urgent
Tests Added?: Beta-hydroxybutyrate
03/04/25 11:43
Add On- LAB Urgent
Tests Added?: BHB
0.9% Sodium Chloride 1000 ml [Nss] 1,000 ml IV BOLUS
03/04/25 11:44
Chest [CR Chest - 2 Views ] Urgent
Comment:
Reason For Exam: cp
03/04/25 13:24
Insulin Aspart [NOVOLOG vial] 10 units SC NOW STA
03/04/25 14:15
Admit/Transfer Patient As Directed
Co-Sign Provider:
Level of Care: Inpatient admission
Assign to:: Telemetry
Physician / Group: alejandro
Diagnosis: chest pain
Reason for Telemetry: Arrhythmia
Date to Stop Telemetry: 03/07/25
Time to Stop Telemetry: 11:00
Reason for Hospitalization: chest pain
Expected length of stay greater than two midnights?: Yes
ELOS- Estimated Length of Stay in days: 2
I certify the patient meets the requirements for IP care: Yes
03/04/25 14:16
Code Status As Directed
Resuscitation Status: Full Code
PRN Pain Medication Management As Directed
May give lesser potent ordered pain med per pt: Yes
preference::
Protocol:: Medication orders for pain may be administered in a
manner that supports deferring to patient preference
when the pt is:
- Requesting an ordered lesser potent pain medication.
Least to most potent pain medications are defined
as: acetaminophen < NSAID < tramadol < opioids
(morphine, oxycodone, hydromorphone).
- Requesting a lesser dose of the same medication IF
ORDERED.
- Requesting a less intrusive route of administration
if both routes are prescribed by the provider (PO <
IV).
03/04/25 Dinner
2000 calorie (17 carb) Diabetic
At Your Request: Full Participation
Does patient need a safe tray?: No
03/04/25 16:35
Dextrose 50%-Water [Dextrose 50% Syringe] 12.5 grams IV [id number] PRN
Glucagon [GlucaGen] 1 mg IM PRN PRN
Insulin Aspart Corrective Low [Novolog Flexpen-Low Resistance] See Protocol SC AC
03/04/25 16:35
CARDIOLOGY CONSULT Routine
Consulting Provider: Bobby Whitney
Was physician already notified: Yes
Activity As Directed
Activity Level: As Tolerated
Bedside Glucose Monitoring As Directed
Frequency: AC&HS
Additional Instructions:: Change to q6h if pt on TPN, tube feeding or not eating
Vital Signs As Directed
Frequency: Per unit guidelines
DX Deep Vein Thrombosis Video Routine
03/04/25 16:58
Troponin I Q6H
03/04/25 20:00
Heparin 5,000 units SC Q12
Ticagrelor [Brilinta] 90 mg PO BID
03/04/25 22:00
Insulin Glargine Lantus [Lantus] 20 units Subcutaneous Insulin Syringe [Syringe-Insulin] 0 unit SC HS
03/04/25 22:35
Troponin I Q6H
03/05/25 04:35
Troponin I Q6H
03/05/25 06:00
Complete Blood Count/With Diff IN AM
Comprehensive Metabolic Panel IN AM
Glycohemoglobin (HgbA1c) IN AM
03/05/25 08:00
Losartan [Cozaar] 25 mg PO DAILY
aspirin 81 mg PO DAILY
03/05/25 10:35
Troponin I Q6H
03/07/25 11:00
DC Protocol for Telemetry ONCE
Abnormal Lab Results
03/04/25 03/04/25
11: 14:02
MPV 10.6 H fL
(7.4-10.4)
Sodium 132 L mmol/L
(135-145)
Carbon Dioxide 19 L mmol/L
(22-30)
BUN 18 H mg/dl
(7-17)
Glucose 500 H* mg/dl
(70-99)
Alkaline Phosphatase 127 H U/L
(38-126)
B-Hydroxybutyrate 0.60 H mmol/L
(0.02-0.27)
POC Glucose 289 H mg/dl
(70-99)
03/04/25 11:07
03/04/25 11:07
Vital Signs
Initial and Last Documented VS:
Initial Vital Signs
Temp Pulse Resp BP Pulse Ox
98.7 F 95 18 153/103 98
03/04/25 10:43 03/04/25 10:43 03/04/25 10:43 03/04/25 10:43 03/04/25 10:43
Last Documented Vital Signs
Temp Pulse Resp BP Pulse Ox
98.6 F 72 16 132/73 98
03/04/25 16:43 03/04/25 16:43 03/04/25 16:43 03/04/25 16:43 03/04/25 16:43
Stone Engraver consulted with Physician
Stone Engraver consulted with physician?: Yes
Name of Physician Consulted: Maryann
MDM/Problems Addressed
Differential Diagnosis Includes:
Not limited to ACS electrolyte abnormality
MDM/Problems Addressed:
As documented patient is a 54-year-old female significant cardiac history status post CABG and stents x 2 history of noncompliance presented with intermittent chest pains rating to the jaw and arm for the past week associate with exertion.
Currently chest pain-free however patient had an episode today while working. This is what prompted patient to come to the ER. She is still noncompliant with her medications and does not take any of her statins or insulin medication. She only
takes losartan and Ticagrelor. She presented here chest pain free negative card troponin no acute elevation on EKG. She was found to have an elevated blood sugar 500 no gap. Fluids insulin ordered. With history noncompliance significant CAD and
intermittent ongoing chest pain for the past week recommend admission. Case reviewed ED physician. I did notify cardiology as well as the hospitalist.
Chronic conditions affecting care:
History of noncompliance, CAD bypass PCI
*Radiology
Radiology exam reviewed: radiology read reviewed
*Pulse Oximetry
SaO2: 98
Oxygen Mode of Delivery: Room air
Patient hypoxic: no
*EKG
Interpreted by ED Provider?: Yes
Interpretation: normal
Heart Rate: 92
Rate: normal
Rhythm: sinus
Ischemia: non-specific ST changes
*Critical Care Note
Total Time (30-74mins, 75-104mins- exclusive of procedures): Not Applicable
ED Attending Note
-
Portions of this chart may have been created with voice recognition software.� Occasional wrong word or��sound alike� substitutions may have occurred due to the inherent limitations of voice recognition software.
Discharge Plan
Departure
Patient Disposition: Admit
Date of Disposition: 03/04/25
Time of Disposition: 13:30
Admit to: Telemetry
Admit to doctor: hospitalist
Presentation/result/management discussed w/ accepting MD/DO: Hospitalist
Patient with high blood pressure during this ER visit?: Yes
Condition: Fair
Covid-19: Not Applicable
Discharge Problem:
Chest pain, Acute hyperglycemia
Interventions
Interventions:
*Risk Screen - Suicide Last Done: 03/04/25 10:43
*General Assessment Last Done: 03/04/25 10:43
*Neglect/Abuse Screening Last Done: 03/04/25 10:43
*ED- Fall Risk Assessment Last Done: 03/04/25 10:58
*ED COVID-19 Vaccine History Last Done: 03/04/25 10:58
*Nursing Disposition Last Done: 03/04/25 16:27
ED- Cardiac Assessment Last Done: 03/04/25 10:58
ED- Pulmonary Assessment Last Done: 03/04/25 10:58
Discharge Date and Time
Discharge Date/Time: 03/04/25 16:28
[2025-03-04 11:16] LABS: Hematocrit 37.8 % (37.0-47.0); Hemoglobin 13.4 g/dL (12.0-16.0); Mean Corp Hgb Conc. 35.4 g/dL (33.0-37.0); Mean Corpuscular Volume 84.0 fL (81.0-99.0); Nucleated Red Blood Cells % 0 %; Platelet Count 281 10^3/uL (130-400); Red Cell Dist. Width 12.1 % (11.5-14.5)
[2025-03-04 11:42] LABS: ALT (SGPT) 28 U/L (0-35); AST (SGOT) 22 U/L (14-36); Albumin 4.6 g/dl (3.5-5.0); Alkaline Phosphatase 127 U/L (38-126); Blood Urea Nitrogen 18 mg/dl (7-17); Calcium 9.8 mg/dl (8.4-10.2); Carbon Dioxide 19 mmol/L (22-30); Chloride 104 mmol/L (98-107); Estimated Creatinine Clearance 108 ml/min; Glucose 500 mg/dl (70-99); Potassium 4.4 mmol/L (3.5-5.1); Sodium 132 mmol/L (135-145); Total Protein 7.5 g/dl (6.3-8.2); eGFR > 60.00
[2025-03-04 11:45] LABS: Troponin I < 0.012 ng/ml
[2025-03-04] MEDS: NSS 1000 IV (11:48)
[2025-03-04 12:00] LABS: INR 0.92; PT 12.7 Sec (11.4-14.6)
[2025-03-04 12:01] LABS: APTT 25.6 Sec (23.4-35.0)
[2025-03-04] MEDS: NOVOLOG vial 10 UNITS SC (13:39)
--- NOTE | 2025-03-04 13:53 | PHANOTE ---
med rec tech: after speaking to this pt, [facility] and requested a [facility] of her med[facility] be [facility]
[2025-03-04 14:03] LABS: Glucose - Point of Care 289 mg/dl (70-99)
--- NOTE | 2025-03-04 14:22 | HPS.HSE ---
Family Physician
-
Family Physician: * NONE
Chief Complaint
-
chest pain
History of Present Illness
54-year-old female past medical history of multivessel CAD status post CABG in 2019, RCA stent in 2022 and mid circumflex stent in 2023 diabetes, hypertension, hyperlipidemia, GERD, presenting with intermittent episodes of chest pain radiating to
the jaw and bilateral arms in the past week. Pain last 30 minutes at a time and resolves with rest. Typically occurs with exertion. Today pain lasted longer prompting her to come to the emergency room. Pain occurred today while she getting a
massage. She had some nausea today. She has chronic shortness of breath with exertion. Denies sweating. Denies swelling in the legs.
She states that she was prescribed 35 units of Lantus and 10 units Humalog 3 times daily but has not been on insulin for over a year because it did not work. She gets her medications from [facility]. denies any thirst or increased urination.
Currently denies any symptoms.
Drinks alcohol occasionally. Denies smoking.
Medical History
Past Medical History
Past Medical History: Reports Other (multivessel CAD status post CABG in 2019, RCA stent in 2022 and mid circumflex stent in 2023 diabetes, hypertension, hyperlipidemia, GERD,)
Past Surgical History: Reports None
Social History
Tobacco: Non-smoker
Alcohol: Occasional
Drug: None
Family History
Family History: Not pertinent
Allergies / Home Medications
Allergies reflects when Allergies were last updated in [facility].
Home Medications with original date entered in [facility]
Allergy/Medication List:
Allergies
Allergy/AdvReac Type Severity Reaction Status Date / Time
Penicillins Allergy Unknown Verified 03/04/25 10:42
Home Medications
ticagrelor 90 mg tablet (Brilinta) 90 mg PO BID #180 tabs 04/01/24
aspirin 81 mg tablet 81 mg PO DAILY 03/04/25
losartan 25 mg tablet 25 mg PO DAILY 03/04/25
Review of Systems
-
History Source: Patient
A 12 point ROS was completed and negative except as noted: Yes
Constitutional: Reports No Symptoms
EENT: Reports No Symptoms
Respiratory: Reports No Symptoms
Cardiac: Reports See HPI
Abdomen/GI: Reports No Symptoms
: Reports No Symptoms
Musculoskeletal: Reports No Symptoms
Skin: Reports No Symptoms
Neurological: Reports No Symptoms
Endocrine: Reports No Symptoms
Hematologic/Lymphatic: Reports No Symptoms
Psych: Reports No Symptoms
Physical Exam
Vital Signs
Vital Signs
Temp Pulse Resp BP Pulse Ox
98.7 F 81 21 116/72 98
03/04/25 10:43 03/04/25 13:30 03/04/25 13:30 03/04/25 13:00 03/04/25 11:15
Physical Exam
General: Well Developed, Well Nourished and No Apparent Distress
HEENT: NormoCephalic, Moist mucous membranes and Atraumatic
Respiratory: Clear
Cardiac: S1/S2 and Regular Rhythm; No Murmur or Rub
GI: Soft, Non Tender, Non Distended and Normal Bowel Sounds; No Organomegaly
Rectal: Deferred by Provider
Musculoskeletal: No Clubbing, No Cyanosis and No Edema
Skin: No Rash
Neuro: Nonfocal/grossly intact
Laboratory Results
-
03/04/25 11:07
03/04/25 11:07
Laboratory Results
PT 12.7 Sec (11.4-14.6) 03/04/25 11:07
INR 0.92 03/04/25 11:07
APTT 25.6 Sec (23.4-35.0) 03/04/25 11:07
Total Bilirubin 0.6 mg/dl (0.2-1.3) 03/04/25 11:07
AST 22 U/L (14-36) 03/04/25 11:07
ALT 28 U/L (0-35) 03/04/25 11:07
Alkaline Phosphatase 127 U/L (38-126) H 03/04/25 11:07
Troponin I < 0.012 ng/ml 03/04/25 11:07
Data Reviewed
-
Lab Data: Labs Reviewed by me
Old Records: Reviewed
Impression/Plan
-
IMPRESSION:
PLAN:
# Chest pain concerning for recurrent ACS
# History of multivessel CAD, prior CABG x 5 in 2019, RCA stent in 2022 with subsequent occlusion due to medication noncompliance, circumflex stent in 2023
- Troponin negative, continue to trend
- EKG shows normal sinus rhythm, nonspecific ST-T wave changes
- Continue aspirin and Brilinta
- Cardiology consulted
#Hyperglycemia secondary to insulin noncompliance
#Type 2 diabetes
-Not on diabetic medication
- Blood sugar 500
- Check A1c
-IV fluids given in 10 units Humalog given
- She was previously on 35 units Lantus, 10 units Humalog before meals not taking in over a year
- Resume Lantus 20 units for now plus sliding scale
Essential hypertension
- Continue losartan
Hyperlipidemia
GERD
Diabetic diet
DVT prophylaxis�heparin
Full code
--- NOTE | 2025-03-04 14:55 | CM ---
CM reviewed chart and met with pt bedside in ED. Lives with her friend Aysha in [facility].
Works locally at [employer], stays with her sister in [place] when working.
Independent in ADLs, personal care and ambulation at baseline, no DME.
Does not currently have PCP, [facility] [place] .
[facility], [facility]. Would use [facility] locally or in [place].
Anticipate discharge home, no needs, CM will continue to follow.
[2025-03-04] MEDS: NOVOLOG FLEXPEN-LOW RESISTANCE SC (16:56)
[2025-03-04 16:57] LABS: Glucose - Point of Care 132 mg/dl (70-99)
[2025-03-04 17:35] LABS: Troponin I < 0.012 ng/ml
[2025-03-04] MEDS: BRILINTA 90 MG PO (20:12)
[2025-03-04] MEDS: HEPARIN 5000 UNITS SC (20:12)
[2025-03-04 21:42] LABS: Glucose - Point of Care 194 mg/dl (70-99)
[2025-03-04] MEDS: LANTUS 0.2 UNITS SC (21:52)
[2025-03-04 22:35] LABS: Troponin I < 0.012 ng/ml
[2025-03-05] VITALS (11 sets, daily range): BP systolic 106–142; BP diastolic 69–93
[2025-03-05 06:46] LABS: Hematocrit 37.3 % (37.0-47.0); Hemoglobin 12.9 g/dL (12.0-16.0); Mean Corp Hgb Conc. 34.6 g/dL (33.0-37.0); Mean Corpuscular Volume 83.4 fL (81.0-99.0); Platelet Count 264 10^3/uL (130-400); Red Cell Dist. Width 12.2 % (11.5-14.5)
[2025-03-05 06:56] LABS: ALT (SGPT) 25 U/L (0-35); AST (SGOT) 23 U/L (14-36); Albumin 3.8 g/dl (3.5-5.0); Alkaline Phosphatase 98 U/L (38-126); Blood Urea Nitrogen 13 mg/dl (7-17); Calcium 9.5 mg/dl (8.4-10.2); Carbon Dioxide 24 mmol/L (22-30); Chloride 109 mmol/L (98-107); Estimated Creatinine Clearance 96 ml/min; Glucose 186 mg/dl (70-99); Potassium 4.0 mmol/L (3.5-5.1); Sodium 136 mmol/L (135-145); Total Protein 6.4 g/dl (6.3-8.2); eGFR > 60.00
[2025-03-05 07:03] LABS: Troponin I < 0.012 ng/ml
[2025-03-05 07:20] LABS: Nucleated Red Blood Cells % 0 %
[2025-03-05 07:42] LABS: Glucose - Point of Care 211 mg/dl (70-99)
[2025-03-05] MEDS: BRILINTA 90 MG PO ×2 (07:42→19:59)
[2025-03-05] MEDS: COZAAR 25 MG PO (07:42)
[2025-03-05] MEDS: LOW STRENGTH ASPIRIN 81 MG PO (07:45)
[2025-03-05] MEDS: NOVOLOG FLEXPEN-LOW RESISTANCE 2 UNITS SC ×2 (07:46→20:00)
[2025-03-05] MEDS: HEPARIN SC ×2 (07:48→19:57)
--- NOTE | 2025-03-05 09:20 | PN.DE.MGMTRT ---
Insulin Management
- -
03/05/2025: Diabetes Management F/U:
Patient admitted with chest pain, STEMI. PMH: CAD with CABG, HTN, HCL, T2DM, IA. Prior to admission was supposed to be taking insulin but states she has not taken any diabetes medications since last time she was in the hospital. States it's been
difficult getting an appointment with an endo and has not seen her Primary physician. She did have a DexCom G7 but script ran out.
Pt awake A/O x3, sitting up in bed, offers no complaints, able to discuss diabetes management.
States she was told to take 35 units of Lantus @ HS with NovoLog 10 units with meals the last time she was here but she only took it for 1 week and stopped because it was not working and her blood sugars were still running high. last A1C was 10.7%
on 03/30/24, current A1C is 13.1% , Cr 0.6, eGFR >60.
Current regimen includes Lantus 20 units @ HS and corrective insulin only. pt received Lantus @ HS, Fasting 187 V, 211 POC
Will start AC NovoLog 5 units and increase HS Lantus to 25 units. Cont low corrective insulin with meals. Will check 3 am glucose.
Discussed current A1C and correlation of poorly controlled diabetes. Emphasized need for consistent insulin administration.
Patient was offered education to reinforce glucose monitor use and insulin administration but declined, stating 'I already have a machine and know how to give myself the injection'
Will cont to follow. Discussed wit pt's Nurse at bedside
Diabetes History
- -
Type of Diabetes: 2 requiring insulin
Pre-Admission Diabetes Regimen
03/04/25 03/05/25
11: 06:05
Creatinine 0.6 0.6
Insulin Pump Settings
IP Diabetes Regimen
03/04/25 03/04/25 03/04/25
11: 14:02 16:56
Glucose 500 H*
POC Glucose 289 H 132 H
0903/05/25 03/05/25
21:41 06:05 07:38
Glucose 186 H
POC Glucose 194 H 211 H
Meal type: Dinner
Amount consumed: 10%
Patient Education
[2025-03-05 10:39] LABS: Glycohemoglobin (HgbA1c) 13.1 % (4.0-5.6)
--- NOTE | 2025-03-05 10:44 | CON.CAR ---
Addendum entered and electronically signed by Philipp Castaneda DO 03/05/25 13:21:
I saw and examined the patient.
The Technology Project Manager's note was reviewed and I agree with the note.
Comment:
Plan:
She has past medical history of CABG including RAMÍREZ to LAD, left radial to ramus, SVG to diagonal and SVG to R PDA), occlusion of prior SVG to R PDA, SHAWNA to RCA in December 2022, PCI to SVG to Diag and LCX 2023, diabetes mellitus, hypertension,
hyperlipidemia, significant noncompliance with medication and follow-up who presents with progressive exertion chest pain that is similar to her prior angina including jaw pain chest pain bilateral shoulder pain. Pain dissipates with rest after 15
minutes. She is reluctant to take nitro because she believes she would only take it if she is going to the emergency room. Chest discomfort reminds her of the pain she had prior to her PCI. She does admit to stopping statin therapy and
metoprolol. She also noncompliant with insulin at times and admits to her hemoglobin A1c being about 10. She admits to poorly controlled hypertension with BPs usually about 160/100. [facility] the [facility] earlier this [facility] and [facility] later this year. 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
Troponins were negative without acute ischemic changes on EKG.
Discussed options including stress testing first cardiac catheterization. She would likely benefit from cardiac catheterization to evaluate her coronary anatomy given the classic exertional nature of her chest discomfort and the fact that even with
negative stress testing this would likely be equivocal if she would be recommended cardiac catheterization in any event.
Check echo to evaluate for structural heart disease.
She would benefit from further diabetes management.
Add metoprolol XL 25 mg daily. Add Crestor 20 mg daily. Continue dual antiplatelet therapy with Brilinta and aspirin. Continue Cozaar.
Check fasting lipids. Her last LDL was suboptimally controlled.
We discussed the need for compliance with both medications and follow-up as she has been lost to follow-up from her previous social work msw as well as her new her social work msw at the [facility] who she states retired.
Discussed with primary service and interventional cardiology.
Original Note:
Consultation
Consultation Request
Date/Time Consultation Requested: 03/04/25 16:35
Date/Time Consultation Performed: 03/05/25 09:00
Requesting Provider: Florin Crawofrd MD
Performing Provider: Jake Daniels DO (Resident); Philipp Castaneda DO
Reason for Consultation: Chest Pain
Medical History
-
Chief Complaint: Chest Pain
History of Present Illness:
Amanda Santiago is a 54F w/ PMHx IDDM, HTN, HLD, and multivessel CAD s/p CABG (RAMÍREZ to LAD, left radial to ramus, SVG to diagonal a. and SVG to R PDA), occlusion of prior CABG (SVG to R PDA), and 2 drug-eluting stents who presented to the ED
yesterday with chest pain. Patient endorses having intermittent substernal chest pressure that radiates to the bilateral shoulders for the past month. Pain is usually rated a 4/10. Episodes are often a result of exertion, such as carrying groceries
from car to home and last 15 minutes before reliably getting better with rest. Patient states that she will also occasionally take an extra dose of ASA 81 mg when experiencing the pain. She has NTG SL at home, but states she has not taken it for
anginal symptoms because she believes the medication should only be taken 'in emergency situations'. These episodes of CP are similar to when she has required PCI in the past. She denies diaphoresis or syncope during these episodes. Patient had an
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
Patient otherwise endorses non-compliance with some medications. States that she is compliant with DAPT and Cozaar, however notes that she is noncompliant with insulin (thinks her last HbA1c was ~10) and rosuvastatin. She does not believe she has
been presribed beta-david in the past. She also endorses taking BPs at home that have subjectively been uncontrolled, with BPs usually around 160/100.
Overnight, patient states that her CP has resolved, though she has a lingering sensation in the bilateral shoulders. Notes that she was orthopneic overnight, but that this is normal for her since CABG in 2019. She is also occasionally dyspneic on
exertion, sometimes even when just talking, but notes that this has also been a chronic issue.
ED COURSE
BP 155/103 on arrival, otherwise AFVSS, unremarkable PE
CBC WNL, Glucose 500, B-hydroxybutyrate 0.6
Trop Neg, EKG no ST-T changes, CXR unremarkable
HOSPITAL COURSE
Troponins negative x 5
PRIOR STUDIES
ECHO 04/20, mild LVH, EF 55-60%, mild MR, mild to mod TR
After procedure in March 2024, insurance changed, and patient followed up with [facility] Rep at [facility], who then retired earlier this year, so she is currently without a social work msw or PCP. Notes that she is establishing care with [facility] in [place]
and they will assign her a social work msw there. Patient lives in [place], but works here.
Past Medical History
Past Medical History: Other (IDDM, HTN, HLD, and multivessel CAD s/p CABG (RAMÍREZ to LAD, left radial to ramus, SVG to diagonal a. and SVG to R PDA), occlusion of prior CABG (SVG to R PDA), and 2 drug-eluting stents)
Past Surgical History: Cardiac (as above)
Social History
Tobacco: Non-Smoker
Alcohol: Occasional
Drug: None
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
Family History
Family History: Adopted
Allergies / Home Medications
Allergy/AdvReac Type Severity Reaction Status Date / Time
Penicillins Allergy Unknown Verified 03/04/25 10:42
�Medication �Instructions �Recorded �Confirmed �Type
aspirin 81 mg tablet 81 mg PO DAILY Blood Clot 03/04/25 03/04/25 History
Prevention/Tx
losartan 25 mg tablet 25 mg PO DAILY Blood Pressure 03/04/25 03/04/25 History
ticagrelor 90 mg tablet (Brilinta) 90 mg PO BID Blood Clot 03/04/25 03/04/25 History
Prevention/Tx
Review of Systems
-
History Source: Patient
All other systems: Negative unless noted
Physical Exam
Vital Signs
Temp Pulse Resp BP Pulse Ox
97.9 F 65 16 129/76 96
03/05/25 07:07 03/05/25 07:07 03/05/25 07:07 03/05/25 07:07 03/05/25 07:07
Lab Results
03/05/25 06:05
03/05/25 06:05
Troponin I < 0.012 ng/ml 03/05/25 06:05
Physical Exam
General: No Apparent Distress and Comfortable; Negative Respiratory Distress
Respiratory: Clear and Non Labored Respirations; Negative Wheezes, Crackles or Rhonchi
Cardiac: S1/S2 and Regular Rhythm; Negative Murmur, Rub, Peripheral Edema or JVD
Musculoskeletal: No Clubbing, No Cyanosis and No Edema
Skin: Warm
Neuro: Awake
Psych: Calm
Impression / Plan
-
Amanda Santiago is a 54F w/ PMHx IDDM, HTN, HLD, and multivessel CAD s/p CABG (RAMÍREZ to LAD, left radial to ramus, SVG to diagonal a. and SVG to R PDA), occlusion of prior CABG (SVG to R PDA), and 2 drug-eluting stents presenting with episodic
exertional chest pain that is curently resolved, with no ischemic changes on ECG and negative troponins x 5. DDx includes stable angina, unstable angina, partial graft occlusion, partial stent thrombosis. Given the recurrence of these symptoms in
the setting of her multivessel disease, we will plan for left heart catheterization to evaluate coronary artery flow as well as start the patient on the appropriate therapies for secondary prevention of AZ, IDDM, HTN, and HLD.
PLAN
- Will review images from prior procedures with interventionalist
- Plan for left heart catheterization later today, or tomorrow AM
- NPO for procedure
- Update ECHO today
- Add-on BNP
- Continue DAPT (ASA/Brilinta)
- Continue Cozaar
- Start Metoprolol XL 25 mg daily with hold parameters
- Start Rosuvastatin 20 mg qPM (ultimate goal to be on high intensity 40mg/day)
- Ticagrelor may increase serum concentrations of Rosuvastatin, start at 20mg as above, monitor kidney function daily and monitor for symptoms of myopathy
- Lipid Panel in AM
Data Reviewed
-
EKG: Tracing Personally Visualized and interpreted and Report Reviewed by me
Radiology: Image Personally Visualized and interpreted and Report Reviewed by me
Labs: Labs Reviewed by me
Old Records: Reviewed
Total Time Spent with Patient (in minutes): 35
[2025-03-05 11:16] LABS: Troponin I < 0.012 ng/ml
[2025-03-05 11:24] LABS: Glucose - Point of Care 288 mg/dl (70-99)
[2025-03-05] MEDS: TOPROL XL 25 MG PO (11:59)
[2025-03-05] MEDS: NOVOLOG FLEXPEN-LOW RESISTANCE 3 UNITS SC (12:00)
[2025-03-05] MEDS: NOVOLOG FLEXPEN SC ×2 (12:00→19:58)
--- NOTE | 2025-03-05 13:07 | W.PN.HOSP.TC ---
Today's Communication/Plan
-
Echo
Cardiac cath
Adjust insulin regimen
Monitor blood pressure
Assessment / Plan
Assessment / Plan
General: Well Developed, Well Nourished and No Apparent Distress
HEENT: NormoCephalic, Moist mucous membranes and Atraumatic
Respiratory: Clear
Cardiac: S1/S2 and Regular Rhythm; No Murmur or Rub
GI: Soft, Non Tender, Non Distended and Normal Bowel Sounds; No Organomegaly
Rectal: Deferred by Provider
Musculoskeletal: No Clubbing, No Cyanosis and No Edema
Skin: No Rash
Neuro: Nonfocal/grossly intact
# Chest pain concerning for recurrent ACS
# History of multivessel CAD, prior CABG x 5 in 2019, RCA stent in 2022 with subsequent occlusion due to medication noncompliance, circumflex stent in 2023
- Troponin negative
- EKG shows normal sinus rhythm, nonspecific ST-T wave changes
- Continue aspirin and Brilinta. Crestor was added. Metoprolol 25 mg added.
-No recent echocardiogram. Agree with repeat imaging.
-Currently n.p.o. for plan for tentative cardiac catheterization either later today or tomorrow.
- Cardiology consulted
#Hyperglycemia secondary to insulin noncompliance
#Type 2 diabetes
-Not on diabetic medication
- Blood sugar 500 on BMP on admission
- Check A1c pending
-Diabetic PATTERN CARRIER consulted. Patient send 25 units of glargine nightly. NovoLog 5 units AC.
Essential hypertension
- Continue losartan. Started on metoprolol
Hyperlipidemia
Started on statin
DVT prophylaxis�heparin
Full code
Discussed with cardiology
Anticipated Discharge: 24 - 48 hours
Subjective/Interval History
-
Date of Service: March 05, 2025
Currently resting in bed
Denies any chest pain at rest
Denies any lightheaded dizziness or palpitation
Objective Data
-
Labs:
Laboratory Results
03/05/25
06:05
WBC 5.6
Hgb 12.9
Hct 37.3
Plt Count 264
Sodium 136
Potassium 4.0
Chloride 109 H
Carbon Dioxide 24
BUN 13
Creatinine 0.6
Glucose 186 H
Calcium 9.5
Total Bilirubin 0.9
AST 23
ALT 25
Alkaline Phosphatase 98
Vital Signs:
Vital Signs
Temp Pulse Resp BP Pulse Ox
98.2 F 80 16 130/79 98
03/05/25 11:05 03/05/25 11:05 03/05/25 11:05 03/05/25 11:05 03/05/25 11:05
I&O
03/04/25 03/05/25 03/06/25
06:59 06:59 06:59
Intake Total 480 / 480
Balance 480 / 480
[2025-03-05 15:19] LABS: ACT-LR - POC 398 Seconds (116-155)
--- NOTE | 2025-03-05 15:26 | CM ---
catering operations manager reviewed patient's chart and met with patient this am and patient reports that she will return to home when stable, no needs.
Plan; Home no needs when stable.
[2025-03-05 15:36] LABS: ACT-LR - POC 335 Seconds (116-155)
[2025-03-05 15:56] LABS: ACT-LR - POC 277 Seconds (116-155)
[2025-03-05 15:56] LABS: ACT-LR - POC 379 Seconds (116-155)
[2025-03-05 15:56] LABS: ACT-LR - POC 236 Seconds (116-155)
[2025-03-05 16:00] LABS: Glucose - Point of Care 175 mg/dl (70-99)
[2025-03-05] MEDS: NSS 1000 IV (16:37)
--- NOTE | 2025-03-05 16:59 | ITS.CL.CATH ---
[employer] Policy Analyst - Catheterization
Cardiac Catheterization
Procedure Report:
LEFT HEART CATHETERIZATION AND CORONARY INTERVENTION
Date of Procedure: March 05, 2025
Referring: Porsha Balbuena.
PROCEDURES:
1. Left heart catheterization, coronary angiogram.
2. Moderate sedation.
3. Selective graft angiography.
4. Successful percutaneous coronary artery intervention of a 90% ostial left circumflex stenosis with one 2.5 x 12 mm Medtronic [place] drug-eluting stent, postdilated using IVUS guidance with a 3.0 x 8 mm NC balloon at high pressures with an
excellent angiographic and IVUS based result.
5. Functional physiologic testing with IFR of ostial radial graft.
6. Intravascular Ultrasound (IVUS).
INDICATION: Concern for Unstable Angina--confirmed no missed doses of ASA/brilinta. poorly controlled DM2 (Hgb A1c 13.1). Negative troponin but escalating episdes of exertional CP and recently with rest episodes.
ACCESS: Right radial artery, 6Fr. sheath, under US guidance.
HEMODYNAMICS : (mmHg)
AO (s/d) : 124/68
LVEDP : 10
No significant gradient across the aortic valve to suggest aortic stenosis.
CORONARY FINDINGS
Dominance: Right
Left Main Trunk (LMT): Left main is large in caliber and gives off the LAD and LCx. The left main has mild 20% stenosis.�
Left Anterior Descending Artery (LAD): LAD is a large caliber vessel that is diffusely diseased from the ostial to the mid-vessel and thereafter in the mid-LAD there is a 80-90% stenosis. The mid to distal LAD is supplied by the RAMÍREZ graft.�
Ramus Intermedius: Ramus branch is a medium caliber vessel which is occluded proximally with a patent radial graft to distal vessel.
Left Circumflex Artery (LCx): The left circumflex is moderate caliber with ostial 99% stenosis which was intervened upon as noted below. �Previously placed mid LCx stent is patent
Right Coronary Artery (RCA): Moderate caliber dominant vessel that gives of the right posterior descending artery and right posterolateral vessel. The proximal RCA has 40% stenosis, RCA has a mid-vessel patent stent, and then distal RCA has diffuse
disease before the RPDA. The continuation of the RCA after the RPDA take-off has severe 95% series of stenoses.��
GRAFT ANGIOGRAPHY:
1. RAMÍREZ to LAD is patent. The LAD after the anastamosis is a small caliber vessel.�
2. Radial graft to Ramus intermedius is widely patent. The ostium has 50% stenosis that was not significant by physiological testing (iFR 0.98).
3. SVG to diagonal is widely patent but is an ectatic vessel. There is a widely patent stent in the mid to distal segment. The diagonal after the anastomoses is a small caliber (< 2mm vessel) and has 70-80% stenosis and is not a PCI target.�
HEMODYNAMIC ASSESSMENT OF THE ostial radial artery graft WITH A [place] OMNI WIRE: We initially attempted to bring up a 6 [place] JR 4 guide catheter and Intravenous heparin was administered to maintain a therapeutic ACT throughout the case. A
[place] Omni wire was advanced to the guide catheter tip and normalized just outside the guide catheter pressure in the ascending aorta. The Omni wire was then carefully manipulated across the stenosis in the ostial RA graft with the iFR above the
ischemic threshold serially measuring 0.98 x 2. The Omni wire was then pulled back to the guide catheter where the Pd/Pa measured 1.0 confirming no baseline drift in pressure readings.
CORONARY INTERVENTION: Decision was made to proceed with PCI to ostial LCX after confirming that iFR across moderate ostial radial graft was above ischemic threshold. A 6Fr. EBU 4.0 guide was used to selective engage with LCA. A 190cm run-through
wire was navigated into the distal LCx carefully. The lesion was predilated with some difficulty needing multiple inflations initially with 2.5x10mm semi-compliant balloon, then with 2.0x 12mm given the 2.5 balloon kept 'water-melon seeding' After
successful predilation with full expansion, the lesion was stented using 2.5x12mm [employer] [place] SHAWNA and post dilated using IVUS guidance with 3.0x 8mm NC balloon at high pressure with excellent angiographic and IVUS based result. Patient
tolerated procedure well without acute complications.
SEDATION: 67 minutes of procedural sedation was utilized. IV Midazolam and IV Fentanyl were administered. An independent medical professionals was present to assist with and help manage the patient's level of consciousness and physiologic status.
RADIATION SUMMARY: Fluoro Time (min): 25.2, Dose (mGy): 1182, DAP (Gy.cm2) : 43.5
Femoral angiography: Femoral arteriotomy above the bifurcation and below the inferior epigastric artery. There is mild stenosis in the visualized external iliac and femoral vessels.
Closure Device: 6Fr. angioseal over RCFA with successful hemostatsis.
CONCLUSIONS
1. Successful percutaneous coronary artery intervention of a 90% ostial left circumflex stenosis with one 2.5 x 12 mm Medtronic [place] frontier drug-eluting stent, postdilated using IVUS guidance with a 3.0 x 8 mm NC balloon at high pressures with an
excellent angiographic and IVUS based result.
2. Normal LVEDP 10mmHG.
RECOMMENDATIONS
1. Bedrest per protocol.
2. Continue aggressive medical therapy and risk factor modification for secondary CAD prevention.
3. Continue ASA 81 mg daily for life.
4. Continue Brilinta for at least 12 months of uninterrupted dual anti-platelet therapy given drug-eluting stent (SHAWNA) implantation to mitigate the risk of stent thrombosis. This is not to be stopped for any reason without the guidance of a
pickle processor.
5. Hydrate with normal saline to mitigate the risk of contrast-induced acute kidney injury.
6. Referral for outpatient cardiac rehab.
7. Emphasized strongly importance of medication compliance and risk factor management.
Susana Oreilly MD, [facility], [facility]
Copy to: Porsha Balbuena.
--- NOTE | 2025-03-05 17:27 | PTCARENOTE ---
Rec'd report from Khushi in the laboratory courier; Rec'd pt AAOx3 w/no c/o CP or SOB. Pt does c/o 08/07 R groin tenderness at the cath access site. R groin w/dressing C/D/I w/no signs or symptoms of bleeding or hematoma. Pt's VSS w/HR 60's & BP 135/71. Pt is SR
on telemetry monitoring. Pt advised of bedrest restrictions & she verbalized her understanding. Pt w/call stinson within reach.
--- NOTE | 2025-03-05 18:43 | PTCARENOTE ---
Pt refusing statins. Pt states 'she doesn't want to get dementia'; This RN attempted to educate pt on importance of taking the appropriate cardiac meds & managing her diabetes to prevent heart disease, which after getting her 4th stent today after
having open heart surgery 5 years ago is her primary concern at this time. Pt resistant to education, again stating she doesn't want to get dementia. Will advise MD.
[2025-03-05 20:00] LABS: Glucose - Point of Care 205 mg/dl (70-99)
--- NOTE | 2025-03-05 21:46 | PTCARENOTE ---
assumed care of patient at the change of shift. AAOx3. QAWALANGIN. off of bedrest. oob with no issues. independent on her feet. SB/SR on tele 50s-70s. bp stable. denies any cp/sob. R groin site CDI. + pulses. reviewed plan of care with patient and
verbalized understanding. call stinson within reach.
[2025-03-05 22:25] LABS: Glucose - Point of Care 344 mg/dl (70-99)
[2025-03-05] MEDS: LANTUS 0.25 UNITS SC (22:26)
[2025-03-05] MEDS: NOVOLOG FLEXPEN 6 UNITS SC (23:00)
--- NOTE | 2025-03-05 23:02 | PTCARENOTE ---
blood glucose 366. notified Brielle segal GREASE REMOVER. 6 units of insulin ordered and given, see mar. will recheck BG in 2 hours.
[2025-03-06 01:07] LABS: Glucose - Point of Care 322 mg/dl (70-99)
--- NOTE | 2025-03-06 01:27 | PTCARENOTE ---
Assumed care at 2300. Patient AO x3, CHICKEN RANCH. NSR 60-70's. Blood sugar elevated at 2230, 6 units of NovoLog given. Reassessed blood sugar at 0100, blood sugar 322, order received for 10 units of NovoLog now. Right femoral dressing intact and soft,
scant drainage from earlier unchanged. Will continue to monitor
[2025-03-06] MEDS: NOVOLOG FLEXPEN 10 UNITS SC (01:42)
[2025-03-06 04:04] VITALS: BP 110/64
[2025-03-06 04:18] LABS: Glucose - Point of Care 203 mg/dl (70-99)
[2025-03-06 04:24] LABS: Hematocrit 35.9 % (37.0-47.0); Hemoglobin 12.8 g/dL (12.0-16.0); Mean Corp Hgb Conc. 35.7 g/dL (33.0-37.0); Mean Corpuscular Volume 82.3 fL (81.0-99.0); Platelet Count 287 10^3/uL (130-400); Red Cell Dist. Width 12.3 % (11.5-14.5)
[2025-03-06 04:50] LABS: Blood Urea Nitrogen 11 mg/dl (7-17); Calcium 9.2 mg/dl (8.4-10.2); Carbon Dioxide 20 mmol/L (22-30); Chloride 112 mmol/L (98-107); Estimated Creatinine Clearance 96 ml/min; Glucose 192 mg/dl (70-99); HDL Cholesterol 28 mg/dl; Potassium 3.7 mmol/L (3.5-5.1); Sodium 138 mmol/L (135-145); eGFR > 60.00
[2025-03-06 05:34] LABS: LDL Cholesterol, Direct 76 mg/dl
[2025-03-06 06:48] LABS: Glucose - Point of Care 126 mg/dl (70-99)
[2025-03-06 07:20] VITALS: BP 118/71
--- NOTE | 2025-03-06 07:50 | PTCARENOTE ---
Assumed care of pt from prev nsg shift; Pt AAOx3 w/no c/o CP or SOB. Pt's VSS w/HR in the 60's & BP 118/71 this AM. Pt is SR on telemetry monitoring. Pt w/R groin access site w/dressing w/sm area of old drainage, marked & unchanged from prev
assessment. No signs or symptoms of bleeding or hematoma. Pt w/call stinson within reach & plan of care ongoing.
--- NOTE | 2025-03-06 08:00 | PN.DE.MGMTRT ---
Insulin Management
- -
03/06/2025: Diabetes Management Follow up:
Patient admitted with chest pain, STEMI. PMH: CAD with CABG, HTN, HCL, T2DM, NC. Prior to admission was supposed to be taking insulin but states she has not taken any diabetes medications since last time she was in the hospital. States it's been
difficult getting an appointment with an endo and has not seen her Primary physician. She did have a DexCom G7 but script ran out. A1C on admission 13.1%, cr .6, eGFR > 60
oPt awake A/O x3, sitting up in bed, offers no complaints, able to discuss diabetes management.
States she was told to take 35 units of Lantus @ HS with NovoLog 10 units with meals the last time she was here but she only took it for 1 week and stopped because it was not working and her blood sugars were still running high. States she was
seeing the [facility] in [place] but now will change to [place] with new patient appointment Friday 03/09. States she did not continue insulin because she was not sure what to do because she only eats one meal. Discussed at length how long acting
insulin has nothing to do with meals and that the lantus should be taken consistently at bedtime. She states she did not think it worked because her blood sugar was higher than the bedtime reading. Discussed normal physiology of Brielle Phenomenon
Advised that if she is eating a meal she would then take the short acting insulin
AC NovoLog 5 units started yesterday with low corrective insulin with meals, patient refused dinner dose. HS Lantus increased to 25 units. 3 am glucose obtained at 4:15: 203.
Will continue current regimen and follow for further needed adjustments.
Will cont to follow. Discussed wit Nurse
Discussed current A1C and correlation of poorly controlled diabetes. Emphasized need for consistent insulin administration.
Patient was offered education to reinforce glucose monitor use and insulin administration but declined, stating 'I already have a machine and know how to give myself the injection'
Diabetes History
- -
Type of Diabetes: 2 requiring insulin
Pre-Admission Diabetes Regimen
03/06/25
04:15
Creatinine 0.5 L
Lab Results
Hemoglobin A1c 13.1 % (4.0-5.6) H 03/05/25 06:05
Insulin Pump Settings
IP Diabetes Regimen
03/05/25 03/05/25 03/05/25
11:20 15:48 19:58
Glucose
POC Glucose 288 H 175 H 205 H
03/05/25 03/06/25 03/06/25
22:24 01:05 04:15
Glucose 192 H
POC Glucose 344 H 322 H 203 H
03/06/25
06:47
Glucose
POC Glucose 126 H
Meal type: Breakfast
Amount consumed: 50%
Patient Education
[2025-03-06] MEDS: NOVOLOG FLEXPEN-LOW RESISTANCE SC (08:24)
[2025-03-06] MEDS: NOVOLOG FLEXPEN 5 UNITS SC ×2 (09:39→14:06)
[2025-03-06] MEDS: HEPARIN SC (09:40)
[2025-03-06] MEDS: BRILINTA 90 MG PO (09:40)
[2025-03-06] MEDS: SODIUM BICARBONATE 650 MG PO (09:40)
[2025-03-06] MEDS: COZAAR 25 MG PO (09:40)
[2025-03-06] MEDS: LOW STRENGTH ASPIRIN 81 MG PO (09:40)
[2025-03-06] MEDS: TOPROL XL 25 MG PO (09:40)
--- NOTE | 2025-03-06 10:32 | W.PN.CD ---
Addendum entered and electronically signed by Magnus Bingham MD 03/06/25 12:54:
I saw and examined the patient.
The ARC CUTTER or PA's note was reviewed and I agree with the note.
Comment: General: Well developed, well nourished in NAD.
Neck: Supple, no JVD, HJR, carotids +2 B/L, no bruits bilaterally.
Heart: Non displaced PMI, RRR, no murmurs, No S3, S4, no rubs.
Lungs: Clear to auscultation bilaterally, no wheeze, rhonchi, rubs bilaterally,
normal expiratory phase.
Extremities: No clubbing, cyanosis or edema bilaterally.
Neuro: Grossly nonfocal, awake, alert and oriented x3.
Stable cardiology status for discharge. She will follow-up with cardiology closer to her house in [facility].
Original Note:
Today's Communication / Plan
-
.
Impression / Plan
-
Amanda Santiago is a 54F w/ PMHx IDDM, HTN, HLD, and multivessel CAD s/p CABG (RAMÍREZ to LAD, left radial to ramus, SVG to diagonal a. and SVG to R PDA), occlusion of prior CABG (SVG to R PDA), and 2 drug-eluting stents presenting with episodic
exertional chest pain that is curently resolved, with no ischemic changes on ECG and negative troponins x 5. She was taken for L heart cath which showed 90% stenosis of the ostial LCx with successful drug eluting stent placement yesterday. ECHO this
AM was unremarkable. HbA1c was 13. Patient without complaints overnight.
PLAN
- Continue DAPT (ASA/Brilinta) for one year.
- ASA to be continued lifelong
- Continue Cozaar.
- Continue Metoprolol XL 25 mg daily with hold parameters
- Continue Rosuvastatin 20 mg qPM (ultimate goal to be on high intensity 40mg/day)
- Patient has concerns about dementia risk with statins, had a lengthy conversation about risks and benefits as well as recent meta-analysis showing decreased dementia risk with lower cholesterol levels
- Ticagrelor may increase serum concentrations of Rosuvastatin, start at 20mg as above, monitor kidney function daily and monitor for symptoms of myopathy
- Continue aggressive medical therapy and risk factor modification for secondary CAD prevention.
- Outpatient cardiac rehab
Physical Exam
Vital Signs/Labs
Vital Signs
Temp Pulse Resp BP Pulse Ox
98.3 F 55 16 118/71 99
03/06/25 07:20 03/06/25 07:45 03/06/25 07:20 03/06/25 07:20 03/06/25 07:20
03/05/25 03/06/25 03/07/25
06:59 06:59 06:59
Actual Weight 73.21 kg
03/06/25 04:15
03/06/25 04:15
PT 12.7 Sec (11.4-14.6) 03/04/25 11:07
INR 0.92 03/04/25 11:07
APTT 25.6 Sec (23.4-35.0) 03/04/25 11:07
Triglycerides 1481 mg/dl (10-149) H 03/06/25 04:15
LDL Cholesterol, Calc mg/dl 03/06/25 04:15
VLDL Cholesterol, Calc mg/dl (0-30) 03/06/25 04:15
HDL Cholesterol 28 mg/dl 03/06/25 04:15
03/05/25
10:40
Rbw-H-Fpeucfeczyf Pept 156
LAB Results
03/04/25 03/04/25 03/04/25
11:07 16:58 22:04
Troponin I < 0.012 < 0.012 < 0.012
03/05/25 03/05/25
06:05 10:40
Troponin I < 0.012 < 0.012
Physical Exam
Constitutional: No acute distress
Cardiovascular: Rhythm & rate is regular, Pedal edema is absent, JVD pressure is normal, Systolic murmur absent and Diastolic murmur absent
Respiratory: Respiratory effort normal, Lungs clear to auscul., Wheeze Absent, Crackles Absent and Rhonchi Absent
Neuro/Psych: Alert
Other: Cath Site (without ecchymosis or bleeding)
Data Reviewed
-
Date of Service: March 06, 2025
Medical Decision Making: Reviewed Test Results
Labs: Labs Reviewed by me
Old Records: Reviewed
Total Time Spent with Patient (in minutes): 32
--- NOTE | 2025-03-06 11:08 | PTCARENOTE ---
Plan of care discussed w/pt. CAD booklet, information on cholesterol & statin drugs, & a recent medical journal study from the [employer] re: statins & dementia improvement given to pt & discussed. adult educator & cardiac rehab in to see
pt.
[2025-03-06 12:14] VITALS: BP 121/68
--- NOTE | 2025-03-06 12:45 | W.PN.HOSP.TC ---
Today's Communication/Plan
-
dc home
Op cards f/u
stress importance compliant with medication and insulin regimen
Assessment / Plan
Assessment / Plan
General: Well Developed, Well Nourished and No Apparent Distress
HEENT: NormoCephalic, Moist mucous membranes and Atraumatic
Respiratory: Clear
Cardiac: S1/S2 and Regular Rhythm; No Murmur or Rub
GI: Soft, Non Tender, Non Distended and Normal Bowel Sounds; No Organomegaly
Rectal: Deferred by Provider
Musculoskeletal: No Clubbing, No Cyanosis and No Edema
Skin: No Rash
Neuro: Nonfocal/grossly intact
# Unstable angina
# History of multivessel CAD, prior CABG x 5 in 2019, RCA stent in 2022 with subsequent occlusion due to medication noncompliance, circumflex stent in 2023
- Troponin negative
- EKG shows normal sinus rhythm, nonspecific ST-T wave changes
- Continue aspirin and Brilinta. Crestor was added. Metoprolol 25 mg added.
- Status post cardiac catheterization with SHAWNA to left circumflex
- Discussed with cardiology. Echo performed earlier and per cardiology okay for discharge.
#Hyperglycemia secondary to insulin noncompliance
#Type 2 diabetes
-Not on diabetic medication
- Blood sugar 500 on BMP on admission
- A1c 13.1. Patient states she stopped taking insulin and is not able to afford it due to insurance issues in the past. However now states she will be compliant with medications moving forward. States she is familiar with giving herself insulin
at home. Has glucometer at home.
-Diabetic SCIENTIFIC EDITOR consulted. Patient send 25 units of glargine nightly. NovoLog 5 units AC.
Essential hypertension
- Continue losartan. Started on metoprolol
Hyperlipidemia
Hypertriglyceridemia
Started on statin
Counseled on diet
Mild non-anion gap acidosis likely secondary to normal saline postcardiac catheterization
DC fluids
DVT prophylaxis�heparin
Full code
Discussed with cardiology
More than 30 minutes spent in discharge including
Final examination of the patient
Summarizing hospital stay
Instructions for continuing care to all relevant caregivers
Preparation of discharge records, prescriptions, and referral forms
Total time spent (in minutes): 52
Anticipated Discharge: Today
Subjective/Interval History
-
Date of Service: March 06, 2025
Denies any chest pain
Denies any groin pain
Denies any lightheadedness or palpitations
Objective Data
-
Labs:
Laboratory Results
03/06/25
04:15
WBC 6.0
Hgb 12.8
Hct 35.9 L
Plt Count 287
Sodium 138
Potassium 3.7
Chloride 112 H
Carbon Dioxide 20 L
BUN 11
Creatinine 0.5 L
Glucose 192 H
Calcium 9.2
Vital Signs:
Vital Signs
Temp Pulse Resp BP Pulse Ox
98.6 F 67 16 118/71 98
03/06/25 12:14 03/06/25 12:14 03/06/25 12:14 03/06/25 07:20 03/06/25 12:14
I&O
03/05/25 03/06/25 03/07/25
06:59 06:59 06:59
Intake Total 480 / 480 1220 / 1220
Balance 480 / 480 1220 / 1220
--- NOTE | 2025-03-06 13:02 | W.DCSUMMARY ---
Discharge Summary
Discharge Data
Date of Admission: 03/04/25
Date of Discharge: 03/06/25
-
Pending Results: No
Hospital Course
54-year-old female past medical history of CAD status post CABG status post stents, insignificant diabetes, hyperlipidemia, hypertension is presenting with complaining of chest pain upon exertion. Troponin checked was found to be negative. No
significant changes on EKG. Chest x-ray was unremarkable. Patient was eval by cardiology. Patient underwent cardiac catheterization and was found to have coronary artery disease and underwent angioplasty and SHAWNA of left circumflex artery.
Postprocedure patient without any complaints. Patient was continued on aspirin and Brilinta. Diabetic team was consulted. Patient was started on Lantus 25 units nightly and premeal insulin. Patient states she will be compliant with insulin
moving forward. Patient also with elevated cholesterol and triglyceride was started on statin medication. ECHO was also performed. Patient was counseled to be compliant with insulin moving forward and patient verbalized understanding. Patient be
discharged with recommendation follow-up with cardiology as outpatient.
Discharge Plan
-
Patient Disposition: Home (Routine Discharge)
Discharge Diagnosis/Procedures: Chest pain status post cardiac catheterization with angioplasty and stent to Left Circumflex artery
Diabetes mellitus uncontrolled with A1C of 13.1
Hyperlipidemia
Hypertriglyceridemia
Condition: Fair
Diet: Low Fat, Low Cholesterol and Diabetic, Carb Controlled
Activity: As tolerated
Other Services: Cardiac Rehab
Instructions: Low blood sugar in people with diabetes, Insulin Glargine, Insulin Lispro, How to use an insulin pen, Type 2 diabetes (DC)
Stand Alone Forms: DC Instructions- Cath/EP Lab
Referrals:
NONE,* [Family Provider, Internal Medicine]
Prescriptions:
New
rosuvastatin 20 mg Tablet
20 mg PO QPM 30 Days Qty: 30 0RF
insulin glargine [Lantus Solostar U-100 Insulin] 100 unit/mL (3 mL) Insulin Pen
25 unit SC HS Qty: 5 0RF
(DME) pen needle, diabetic [Pen Needle] 31 gauge x 1/4' needle
See Rx Instructions .Route Qty: 200 0RF
Rx Instructions:
TID AC and HS
metoprolol succinate 25 mg Tablet Extended Release 24 Hr
25 mg PO DAILY Qty: 30 0RF
insulin aspart U-100 [Novolog FlexPen U-100 Insulin] 100 unit/mL (3 mL) insulin pen
5 unit SC AC Qty: 15 0RF
Rx Instructions:
Hold if skipping a meal
Continued
losartan 25 mg Tablet
25 mg PO DAILY
aspirin 81 mg Tablet
81 mg PO DAILY
ticagrelor [Brilinta] 90 mg tablet
90 mg PO BID
Discharge Orders:
Discharge Patient (As Directed); Ordered 03/06/25
Ordered By: Tonny Hewitt
Care Plan Goals
Care Plan Goals:
Problem: Readiness for enhanced knowledge related to diagnosis and treatment plan
Goal: Understand your diagnosis and treatment plan needs, including medications if applicable.
Instructions: Know your diagnosis, underlying causes and treatment plan options, including medications if applicable. Consult with your health care team to learn about your diagnosis and treatment plan, including medications if applicable.
Discharge Date and Time
Discharge Date/Time: 03/06/25 17:07
Print Language: PALAUAN
[2025-03-06 13:09] LABS: Glucose - Point of Care 275 mg/dl (70-99)
[2025-03-06] MEDS: NOVOLOG FLEXPEN-LOW RESISTANCE 3 UNITS SC (14:06)
[2025-03-06 15:21] VITALS: BP 136/76
--- NOTE | 2025-03-06 15:28 | CM ---
spoke to pt in room, she is currently on and has pills at home for brilinta. she would like her pers[facility] go [facility], this was entered into the profile as preferred pharm
--- NOTE | 2025-03-06 16:58 | PTCARENOTE ---
Pt's IV line & secured entrance monitor D/C'd. Discussed D/C instructions w/pt & pt seems receptive to medication changes including taking a statin at this time. Pt is set up for an appt w/her new PCP through the [facility]. Pt escorted out via WC by
staff w/her boss driving her home.
== END 2025-03-06 17:07 | disposition home or self-care (01) | DRG 322 ==
LOC: IVU 14:26
PROVIDERS: Internal Medicine Interventional Cardiology; Nurse Practitioner; ADMITTING PHYSICIAN Hospitalist; ATTENDING PHYSICIAN Hospitalist; EMERGENCY PHYSICIAN Emergency Medicine; OTHER PHYSICIAN Nuclear Medicine Nuclear Cardiology
PROC: B2131ZZ Fluoroscopy of Multiple Coronary Artery Bypass Grafts using Low Osmolar Contrast (ICD-10-PCS; 2025-03-05)
PROC: B2111ZZ Fluoroscopy of Multiple Coronary Arteries using Low Osmolar Contrast (ICD-10-PCS; 2025-03-05)
PROC: B2181ZZ Fluoroscopy of Left Internal Mammary Bypass Graft using Low Osmolar Contrast (ICD-10-PCS; 2025-03-05)
PROC: B241ZZ3 Ultrasonography of Multiple Coronary Arteries, Intravascular (ICD-10-PCS; 2025-03-05)
PROC: 4A033BC Measurement of Arterial Pressure, Coronary, Percutaneous Approach (ICD-10-PCS; 2025-03-05)
PROC: 027034Z Dilation of Coronary Artery, One Artery with Drug-eluting Intraluminal Device, Percutaneous Approach (ICD-10-PCS; 2025-03-05)
PROC: 4A023N7 Measurement of Cardiac Sampling and Pressure, Left Heart, Percutaneous Approach (ICD-10-PCS; 2025-03-05)
DX: I25.110 Atherosclerotic heart disease of native coronary artery with unstable angina pectoris (principal); E87.29 Other acidosis; E11.65 Type 2 diabetes mellitus with hyperglycemia; I10 Essential (primary) hypertension; E78.00 Pure hypercholesterolemia, unspecified; K21.9 Gastro-esophageal reflux disease without esophagitis; I25.2 Old myocardial infarction; Z95.1 Presence of aortocoronary bypass graft; Z95.5 Presence of coronary angioplasty implant and graft; Z79.82 Long term (current) use of aspirin; Z79.4 Long term (current) use of insulin; Z91.148 Patient's other noncompliance with medication regimen for other reason
CPT/HCPCS: 71046; 80048; 80053; 80061; 82010; 82962; 83036; 83721; 83880; 84484; 85025; 85027; 85347; 85610; 85730; 92978; 93005; 93306; 93458; 93459; 93799; 96361; 96372; 99152; 99153; 99285; C1725; C1753; C1769; C1874; C1876; C1894; C9600; Q9967